=== PATIENT | male | born 1965 | race Caucasian/White ===

== ENCOUNTER 2017-11-03 19:18 | Inpatient (IN) | payer SELFPAY ==
[~2017-11-03 19:18] MED LIST: ISOVUE-370 76%-LOCM 1 ML ONE
[2017-11-03 20:17] LABS: Mean Corpuscular HGB CONC 34.2 g/dL (32.0-36.0); Mean Corpuscular Hemoglobin 32.1 pg (27.0-31.0); Mean Corpuscular Volume 93.9 fl (80.0-94.0); Mean Platelet Volume 7.3 fL (7.4-10.4); Platelet Count 97 thou/uL (130-400); RBC Distribution Width 11.6 % (11.5-14.5); Red Blood Cell (RBC) Count 4.36 mill/uL (4.70-6.10); White Blood Cell (WBC) Count 9.9 thou/uL (4.8-10.8)
[2017-11-03 20:37] LABS: Band 24 % (5-11); Lymphocytes 1 % (21-51); MDiff Complete? YES; Metamyelocyte 3 % (0-0); Monocytes 2 % (0-10); Neutrophil 70 % (42-75); PLT Morphology Comment Appears Decreased
[2017-11-03 20:38] LABS: ALT (SGPT) 32 U/L (8-55); AST (SGOT) 43 U/L (5-34); Albumin 2.9 g/dL (3.5-5.0); Alkaline Phosphatase 38 U/L (40-150); Anion Gap 13 mmol/L (10-20); BUN (Urea Nitrogen) 15 mg/dL (8.4-25.7); Bilirubin, Total 1.7 mg/dL (0.2-1.2); Calc. Creatinine Clearance 0 mL/min (70-130); Calcium 7.1 mg/dL (7.8-10.44); Carbon Dioxide 17 mmol/L (22-29); Chloride 101 mmol/L (98-107); Estimated GFR-MDRD 55; Globulin 2.8 g/dL (2.4-3.5); Glucose 156 mg/dL (70-105); Lipase 8 U/L (8-78); Potassium 3.3 mmol/L (3.5-5.1); Protein, Total 5.7 g/dL (6.0-8.3); Sodium 128 mmol/L (136-145)
[2017-11-03 20:43] LABS: CKMB 4.1 ng/mL (0-6.6); Troponin I 0.026 ng/mL (< 0.028)
[2017-11-03] MEDS ORDERED: Ondansetron HCl/PF 4 MG/2 ML Vial ONE (21:12)
[2017-11-03 21:43] LABS: Bilirubin Small (Negative); Clarity CLOUDY (Clear); Glucose, Urine (Dipstick) 250 mg/dL (Negative); Leukocyte Trace (Negative); Nitrite Negative (Negative); Protein, Urine (Dipstick) 100 mg/dL (Neg-Trace); Urobilinogen 0.2 mg/dL (0.2-1.0); pH, Urine 5.5 (5.0-9.0)
[2017-11-03 21:45] LABS: Bacteria/HPF Rare-Few HPF (None Seen); Pathc Cast-AUWi Flag 2.16 (0-2.49); RBC/HPF 0-3 HPF (0-3); Squamous Epithelial 0-3 HPF (0-3); WBC/HPF 21-50 HPF (0-3)
[2017-11-03 21:47] LABS: Yeast-AUWi Flag 105.6 (0-25.0)
--- NOTE | 2017-11-03 21:53 | RAD ---
PORTABLE CHEST ONE VIEW 11/03/17 at 7:24 p.m. HISTORY: Fever, sepsis. FINDINGS: Comparison is made with earlier exam of 4:28 p.m. The heart size is borderline. Lungs are well expanded without focal areas of consolidation, pneumotho rax, geovanna pulmonary edema, or pleural effusions. IMPRESSION: No radiographic evidence of acute cardiopulmonary process. POS: [facility]
[2017-11-03 21:58] LABS: Blood, Urine Trace (Negative); Crystals/HPF None Seen HPF (Negative); Hyaline Casts/LPF 4-6 HYALINE CAST LPF (0-3 Hyaline); Transitional Epithelial 0-3 HPF (0-3); Yeast-All Forms None Seen HPF (None Seen)
[2017-11-03] MEDS ORDERED: Magnesium Sulfate 2 GM/100 ML BAG ONE (22:22)
[2017-11-03] MEDS ORDERED: Magnesium Sulfate 2 GM/NS 0.9% 50 ML BAG ONE (22:23)
--- NOTE | 2017-11-03 22:38 | CT ---
CT ABDOMEN AND PELVIS WITH IV CONTRAST: 11/03/17 HISTORY: Sepsis. FINDINGS: There is a tiny right pleural effusion. There is small amount of fluid surrounding the distal esophag us. No free air or free fluid is otherwise seen in the abdomen or pelvis. No calcified gallstones are seen. The liver, spleen, pancreas, adrenal glands and kidneys appear normal. No abnormally loculated fluid collection is noted to suggest abscess formation. The prostate is mildly enlarged. There are degenera tive changes in the spine. There is no evidence of aneurysmal dilatation of the abdominal aorta. Ther e is no evidence of high grade small bowel obstruction. A small fat containing right inguinal hernia is present. IMPRESSION: Tiny right pleural effusion and small amount of periesophageal fluid surrounding the distal esophagus . Etiology of this is uncertain. Possibility of esophageal perforation cannot be excluded. Discussed over the telephone with ER physician, Dr. Jorge Rosenbaum at 9:52 p.m. POS: [facility]
[2017-11-03] MEDS ORDERED: Acetaminophen 500 MG TAB ONE (23:11)
[2017-11-03] MEDS ORDERED: metroNIDAZOLE 500 MG/100 ML BAG ONE (23:47)
[2017-11-04 00:05] LABS: Lactic Acid 3.7 mmol/L (0.5-2.2)
[2017-11-04 00:15] LABS: Troponin I 0.045 ng/mL (< 0.028)
[2017-11-04] MEDS ORDERED: Ibuprofen 200 MG TAB ONE (01:12)
[2017-11-04 02:54] LABS: Troponin I 0.054 ng/mL (< 0.028)
[2017-11-04] MEDS ORDERED: Ondansetron ODT 4 MG TAB PO PRN (03:39)
[2017-11-04] MEDS ORDERED: Acetaminophen 325 MG TAB PO PRN (03:39)
[2017-11-04] MEDS ORDERED: HYDROcodone/Acetaminophen 5/325 mg Tablet PO PRN (03:39)
[2017-11-04] MEDS ORDERED: metroNIDAZOLE 500 MG/100 ML BAG ONE ×2 (06:05→14:01)
--- NOTE | 2017-11-04 07:10 | HP ---
CHIEF COMPLAINT: Transferred from [facility] because of sepsis. HISTORY OF PRESENT ILLNESS: He is a 52-year-old man with no medical history. He came in because he has been feeling sick for a few days, with bodyaches had fever and nausea, vomiting, and sick contact with his girlfriend. When he came to the ER, he was tachycardic, pulse 120, blood pressure 100/60. Lactic acid high, so he was treated with sepsis protocol. He was given 3 liter boluses and a blood culture was done and he was admitted to the hospital with sepsis with no source. PAST SURGICAL HISTORY: No significant past medical history noted. SOCIAL HISTORY: Does not smoke, does not drink. Denies drug use. FAMILY HISTORY: Noncontributory. MEDICATIONS: None. REVIEW OF SYSTEMS: GENERAL: Does have fever and bodyaches. EYES: No blurry vision. ENT: Ears; no rhinorrhea, no discharge. CARDIOVASCULAR: Tachycardia. No chest pain, no orthopnea. RESPIRATORY: He has a mild cough, no congestion, no wheezing. ABDOMEN: Nausea, belly pain, no diarrhea, no vomiting. GENITOURINARY: No urinary symptoms, dysuria, urgency. SKIN: No rash. PHYSICAL EXAMINATION. GENERAL: A middle-aged man lying in the bed. VITAL SIGNS: Tachycardic, pulse 121, 26, blood pressure 104/60, h HEENT: Head is atraumatic, normocephalic. Pupils round, reactive. Extraocular movements intact. Throat normal. Tongue is moist. NECK: Supple, no JVD, no thyromegaly. Trachea midline. CHEST: Has diminished breath sounds, a few rhonchi audible. No crackles, no wheezing. CARDIOVASCULAR: S1 audible. No S4. ABDOMEN: Soft. Bowel sounds audible. Mild tenderness. No organomegaly, no guarding. EXTREMITIES: No pedal edema. No cyanosis or clubbing. PROFESSOR OF MEDICINE: Alert and oriented x3. No focal deficit. LABORATORY DATA: Shows sodium 128, potassium 3.9, chloride 101, carbon dioxide 17, BUN 15, creatinine 1.35, glucose 136, lactate 2.7, mag is 1.0, total bilirubin 1.7, AST 43, ALT 32. Troponin 0.050. Albumin 2.9, globulin 2.8, lipase 8. Urine shows a negative nitrite. Chest x-ray negative. CAT scan shows esophageal dilatation. ASSESSMENT AND PLAN: 1. Sepsis, etiology unclear. Continue sepsis protocol, IV fluid, follow lactic acid. IV Zosyn, Levaquin for broad spectrum coverage. Blood culture x2 and IV Flagyl. 2. Hyponatremia, mild hypovolemic to second hypovolemia. IV fluid and monitor sodium. 3. Hypokalemia and hypomagnesemia, metabolic, recurrent. Continue to replace electrolytes per protocol. 4. Slight positive troponin, possible demand ischemia. Get echocardiogram. 5. Deep venous thrombosis prophylaxis with Lovenox. MTDD
[2017-11-04] MEDS ORDERED: Enoxaparin Sodium 40 MG/0.4 ML SYRINGE SC SCH (09:00)
[2017-11-04] MEDS ORDERED: Vancomycin HCl 1 GM in Sodium Chloride 0.9% 250 ML 250 ML IVPB SCH (09:00)
[2017-11-04] MEDS ORDERED: MD-Gastroview 120 ML BOT ONE (10:05)
[2017-11-04] MEDS ORDERED: Famotidine/PF 20 mg/2ml Vial ONE (11:29)
--- NOTE | 2017-11-04 13:42 | PDOC.EVN ---
Event Note - Event Note Event Note: S: pt is seen today, he is tired and lethargic, but alert and oriented. He is admitted with Diarrhea and vomting, with fever and body pains, Pt was not checked for FLu. He had chest pain yesterday. O: Vitals are stbale, reviwed, and labs are abnormal reviwed, elevated Troponins and Abnormal electrolytes. A: NSTEM/ Sepsis/ Hypokalemia/ Hyponatremia/ GERONIMO/ flu like syndrome. P: Cardiology consulted, Echo is pending. Folow recomemdations Continue with IV fluids. Will check for Influenza A and treat with Tamiflu Continue emperic antibitoics.
[2017-11-04 16:20] VITALS: BMI 37.3
[2017-11-04] MEDS: Sodium Chloride 0.9% 1,000 ML IV SCH ×2 (16:36→16:37)
[2017-11-04] MEDS: Vancomycin HCl 1 GM in Premix Bag 1 BAG IVPB SCH ×2 (16:37→17:18)
[2017-11-04] MEDS: Piperacillin-Tazo-Dextrose,Iso 3.375 GM in Premix Bag 1 BAG IVPB SCH ×2 (16:37→17:18)
[2017-11-04] MEDS: metroNIDAZOLE 500 MG in Premix Bag 1 BAG IVPB SCH (16:37)
[2017-11-04] MEDS: Famotidine/PF 20 mg/2ml Vial SLOW IVP SCH (16:38)
[2017-11-04] MEDS: methylPREDNISolone Sod Succ/PF 125 MG/2 ML VIAL IVP SCH (17:23)
--- NOTE | 2017-11-04 21:31 | PRG ---
DATE OF SERVICE: 11/03/2017 SUBJECTIVE: Mr. Tucker is a very pleasant 52-year-old male who "never goes to the doctor." He says e very fall, he gets respiratory illness consisting of a cough that keeps him sick for about 10 days. He says the longest it has ever lasted is 2 weeks. He subsequently presented with a normal blood pressure, but an elevated pulse. It is unclear to me w hether or not he is febrile with his elevated pulse. Subsequently he was given IV fluids and started on 4 different antibiotics. He has turned bright red since antibiotics were started. I suspect thi s is a red man syndrome associated with vancomycin. PAST MEDICAL HISTORY: Otherwise unremarkable. He does not smoke, nondrinker, does not use drugs. ALLERGIES: He has no drug allergies. FAMILY HISTORY: Negative for lung disease at an early age. MEDICATIONS: He is on no medications prior to admission. REVIEW OF SYSTEMS: Ten points is otherwise negative. His only complaint is myalgias and low grade f ever, but he just could not shake as usual, fall, cough. PHYSICAL EXAMINATION: VITAL SIGNS: Blood pressure 132/90, heart rate is 134, respiratory rate 24. This is a triage in the IMU, oximetry is 96 on 3 liters. He is afebrile. HEENT: His pupils are equal, sclerae is anicteric. NECK: Supple. LUNGS: Clear. CARDIOVASCULAR: Heart regular rhythm. S1 and S2 are normal, rapid rate. ABDOMEN: Soft and nontender. EXTREMITIES: Without clubbing, cyanosis, or edema. LABORATORY DATA: White count 9.9, hemoglobin 14, platelets 97,000. Sodium 128, potassium 3.3, chlor alonzo 101, bicarb 17, BUN 15, creatinine 1.35, glucose 156. Lactate was elevated. Calcium was 7.1, bi lirubin was 1.7, AST 43, ALT 32, alkaline phosphatase 38, albumin is 2.9. Urinalysis showed only 100 mg per deciliter of protein, he had 21-50 white cells. He had an abdomen and pelvis CT done which showed a tiny right effusion, some inflammatory changes ar ound his distal esophagus. IMPRESSION: Bronchitis. There is nothing to suggest that he has mediastinitis associated with esophageal perforation. I suspect all of this is viral mediated. He does have multiple lab abnormalities, but these just needed to be followed with , and he need s to continue IV hydration. Other problems include mild hyponatremia, mild elevation of liver enzyme s with an elevated bilirubin, mild hypokalemia, mild elevation of creatinine, which I suspect is volu me related, mild elevation of glucose and multiple electrolyte abnormalities that he should be easily manageable. I do not feel any need for antibiotics or simplifies antimicrobial regimen simply to qu inolone at this time. His flu screen was negative. His urine culture is negative at 12 hours.
--- NOTE | 2017-11-04 22:57 | CON ---
DATE OF CONSULTATION: 11/04/2017. REQUESTING PHYSICIAN: Nicolas Williamson MD REASON FOR CONSULTATION: Abnormal CT of the esophagus. HISTORY OF PRESENT ILLNESS: Eliseo Tucker is a 52-year-old man with no significant past medical histo ry. He does not take any medications on an outpatient basis. He was admitted to the hospital yester day with progressive symptoms over the past week. He says symptoms started out with a nagging cough and nausea. The cough became increasingly more productive and then he became febrile then over the p ast couple of days, he became increasingly short of breath. The nausea has persisted. He has not jo d any significant vomiting, but he does say he had been retching and dry heaving quite forcefully a f ew times over the past few days, his appetite has gone down. Upon presentation, he was found to have lab and vital abnormalities consistent with sepsis. He has been tachycardic and slightly hypotensiv e. He is being treated with sepsis protocol. He is getting four antibiotics. Despite this over the course of the day, he has not really clinically improved. He has remained tachycardic. He continue s to cough and his lactic acid actually climbed from 2.7-3.7. He had a CT of the abdomen and pelvis last night on admission and this demonstrated a right pleural effusion, but also a small amount of fl uid around the distal esophagus of uncertain etiology, and the radiologist said the possibility of es ophageal perforation could not be excluded. The patient really is not having significant pain in the chest or in the abdomen. It is primarily the cough and the tachycardia that are bothering him from a symptom perspective. REVIEW OF SYSTEMS: Full review of systems including constitutional, head, eyes, ears, nose, throat, GI, , cardiovascular, respiratory, musculoskeletal, and neurologic systems is negative except as no [place] in the HPI. PAST MEDICAL HISTORY: None. PAST SURGICAL HISTORY: None. ALLERGIES: No known drug allergies. OUTPATIENT MEDICATIONS: None. INPATIENT MEDICATIONS: IV Zosyn, IV Levaquin, IV Flagyl, IV vancomycin. SOCIAL HISTORY: No smoking, alcohol, or drug use. FAMILY HISTORY: Noncontributory. PHYSICAL EXAMINATION: VITAL SIGNS: Temperature 99.4, pulse 134, blood pressure 132/90, 96% oxygen saturation on 3 liters b y nasal cannula. GENERAL: A 52-year-old obese gentleman lying in bed on his right side having a productive cough. MENTAL STATUS: He is alert and oriented, pleasant and conversational. He can give details about his presenting history and his current symptoms. SKIN: No jaundice, no rash visible or palpable. EYES: No scleral icterus. Extraocular movements intact. ENT: Mucous membranes moist, no oral lesions. LYMPH: No submandibular, supraclavicular lymphadenopathy. THYROID: Nontender to palpation. HEART: Regular tachycardia. LUNGS: Bibasilar crackles. No wheezing appreciated. He is coughing quite frequently. This is of c ough productive of greenish phlegm. ABDOMEN: Obese, bowel sounds present, soft and nontender to deep palpation throughout. No masses or organomegaly appreciated. EXTREMITIES: No peripheral edema. VESSELS: Radial pulses 2+ bilaterally. NEUROLOGICAL: Cranial nerves II-XII intact bilaterally. No focal deficits. LABORATORY STUDIES: WBC 9.9, hemoglobin 14, platelets 97. Sodium 128, potassium 3.3, BUN 15, creati nine 1.35, glucose 156. Magnesium 1.0. Lactic acid initially 2.7, now 3.7, and lipase only 8, total bilirubin 1.7, alkaline phosphatase 38, AST 43, ALT 32. Albumin 2.9. Influenza swab negative. Uri ne culture shows no growth at 12 hours. Troponin 0.02 climbing up to 0.04, then 0.054. IMAGING STUDIES: Initial chest x-ray showed no acute processes. CT of the abdomen and pelvis shows a small right pleural effusion and a small amount of fluid around the distal esophagus of uncertain e tiology. There is no free air, unopacified noncontrast liver, spleen, pancreas and bowel appeared no rmal. There is a small right inguinal hernia. ASSESSMENT AND PLAN: 1. Sepsis syndrome, unclear etiology. 2. Abnormal CT scan of the esophagus, demonstrating periesophageal fluid. I reviewed the patient's presentation as well as CT findings with the patient as well as Dr. Bills. Overall, the patient's presentation seems most consistent with some kind of viral pneumonitis. Howev er, I am concerned about his lack of clinical improvement today, increasing lactate levels and contin ued tachycardia. The patient does not have other clinical features of mediastinitis such as chest pa in, but given the CT findings of fluid around the distal esophagus, need to keep spontaneous esophage al perforation and development of mediastinitis in mind. He did have some forceful retching over the past few days. I do not think anything would be gained by performing upper endoscopy. Rather, I wo uld cut the patient's diabetic to clear liquid diet, and I recommend obtaining surgical consultation for their opinion on CT findings and his overall presentation. I spoke with Dr. Bills who agrees wit h the plan. Thank you for the consultation. Please call any time with questions or concerns.
[2017-11-05] MEDS: Sodium Chloride 0.9% 1,000 ML IV SCH ×2 (00:20→08:41)
[2017-11-05] MEDS: Benzonatate 100 MG CAP PO SCH ×4 (00:22→20:51)
[2017-11-05] MEDS: guaiFENesin ER 600 MG TAB PO SCH ×3 (00:22→20:51)
[2017-11-05] MEDS: Famotidine/PF 20 mg/2ml Vial SLOW IVP SCH ×3 (00:22→20:52)
[2017-11-05 05:21] LABS: Band 56 % (5-11); Dohle Bodies SLIGHT; Lymphocytes 3 % (21-51); MDiff Complete? YES; Mean Corpuscular HGB CONC 34.1 g/dL (32.0-36.0); Mean Corpuscular Hemoglobin 31.8 pg (27.0-31.0); Mean Corpuscular Volume 93.4 fl (80.0-94.0); Mean Platelet Volume 7.9 fL (7.4-10.4); Monocytes 4 % (0-10); Neutrophil 37 % (42-75); PLT Morphology Comment Appears Decreased; Platelet Count 95 thou/uL (130-400); Red Blood Cell (RBC) Count 4.39 mill/uL (4.70-6.10); White Blood Cell (WBC) Count 10.8 thou/uL (4.8-10.8)
[2017-11-05 05:33] LABS: Anion Gap 14 mmol/L (10-20); BUN (Urea Nitrogen) 12 mg/dL (8.4-25.7); Calc. Creatinine Clearance 170 mL/min (70-130); Calcium 7.9 mg/dL (7.8-10.44); Carbon Dioxide 19 mmol/L (22-29); Chloride 104 mmol/L (98-107); Estimated GFR-MDRD Greater than 90; Glucose 153 mg/dL (70-105); Potassium 3.8 mmol/L (3.5-5.1); Sodium 133 mmol/L (136-145)
--- NOTE | 2017-11-05 06:04 | CON ---
DATE OF CONSULTATION: 11/04/2017 HISTORY OF PRESENT ILLNESS: This is a 52-year-old gentleman admitted about 24 hours ago after being seen with sore throat, aches, chills with no documented fever, chest and abdominal pain for the prior 48 hours. He may have had some nausea and vomiting as well, although he cannot remember, and alexey alvarado is a rather poor historian. He smoked about a half a pack of cigarettes a day until about 2 week s ago. He drank heavily in the past, but none in 14 years. He is a outside machinist helper, living near [place], but when asked specifically where he lives, he cannot remember his address. PAST SURGICAL HISTORY: Includes multiple hernia repairs as well as a prior appendectomy. LABORATORY VALUES: His admitting white count was normal, although he did have 24 bands. His lactic acid was elevated. His chest x-ray was unremarkable and his CT scan was primarily of his abdomen, bu t did include his distal chest, was suspicious for some fluid around his distal esophagus, but no daniella ar air. He did not have any significant bilateral effusions. He has not had any repeat studies toda y. PHYSICAL EXAMINATION: GENERAL: He is alert and cooperative, in no acute distress. He states he feels congested and is tir ed of breathing hard. VITAL SIGNS: Heart rate is 125-130 and his blood pressure most recently 130/90. NECK: I did not feel any crepitance and he has no tenderness, although he thinks his neck is swollen . LUNGS: Reveal bilateral expiratory wheezes. CARDIOVASCULAR: Tachycardia with no murmurs. He has no chest wall tenderness. Abdomen: Obese, and nontender. EXTREMITIES: Without edema. At this time, Gastrografin swallow is pending to rule out a possible esophageal perforation. If this is the case, then it is probably at least 24 hours perhaps longer consideration [facility] will be given. If his influenza studies are negative, then he may just need to be treated for possible pneumonia. We will need to repeat his CBC as well.
--- NOTE | 2017-11-05 07:50 | RAD ---
GASTROGRAFIN ESOPHAGRAM: HISTORY: Esophagitis. RADIATION DOSIMETRY: 1.4 minutes of fluoroscopy and DAP of 8.57 mGy*^m2. Gastrografin was given orally. Spot images obtained. The esophagus is unremarkable. No evidence of esophageal web spans or strictures seen. The Gastrogr afin passes the distal esophagus without difficulty into the stomach. No evidence of a hiatal hernia is seen. No significant residual contrast is seen in the distal esophagus. No significant evidence of difficulty in passage of the contrast is seen in the distal esophagus. IMPRESSION: Normal esophagram. Findings discussed with Dr. Loo at 7:16 p.m. on 11/04/17. CODE CR POS: [facility]
[2017-11-05] MEDS: Sodium Chloride 0.45% 1,000 ML IV SCH ×2 (12:38→18:21)
[2017-11-05] MEDS ORDERED: cefTRIAXone\\ROCEPHIN 2 GM in Sodium Chloride 0.9% 100 ML IVPB SCH (13:00)
--- NOTE | 2017-11-05 13:59 | RAD ---
CHEST 1 VIEW: HISTORY: Dyspnea. Followup. COMPARISON: 11/03/16. FINDINGS: Cardiac silhouette is magnified and upper limits of normal in size. Pulmonary vasculature is also up per limits of normal. Infiltrate has developed at the right base with blunting of the right lateral costophrenic angle. Left lung is clear. IMPRESSION: Developing right basilar infiltrate with right pleural fluid. Clinical correlation regarding other s igns and symptoms of right basilar pneumonitis versus other cause of right lower lobe abnormality is required. POS: [facility]
[2017-11-05] MEDS ORDERED: Sodium Chloride 0.9% 1,000 ML IV SCH (14:45)
--- NOTE | 2017-11-05 14:53 | PRG ---
DATE OF SERVICE: 11/05/2017 GI INPATIENT DAILY PROGRESS NOTE SUBJECTIVE: Mr. Tucker is feeling a bit better today. His cough does persist. He has remained tachy cardic, but otherwise hemodynamically stable. No significant shortness of breath. No chest pain or abdominal pain. New chest x-ray today demonstrates right pleural effusion and right-sided lung infil trate. His Gastrografin esophagram yesterday was normal. There was no evidence of difficulty in pas july of the contrast from normal esophagus into the stomach. OBJECTIVE: VITAL SIGNS: Pulse 116, blood pressure 129/80, 95% oxygen saturation on 2 liters by nasal cannula, t emperature spiked to 101.7 this morning, currently 98.7. LABORATORY DATA: WBC 10.8, hemoglobin 14, and platelets 95. Sodium 133, potassium 3.8, BUN 12, crea tinine down to 0.84. ASSESSMENT AND PLAN: 1. Sepsis syndrome. 2. Right-sided pneumonia. 3. Abnormal CT scan of the esophagus, with subsequent Gastrografin esophagram normal. I reviewed th e normal esophagram. No evidence of mediastinitis. It does appear that the patient has a right-side d lung infiltrate. Workup for this is ongoing. He continues on antibiotics. I do not think there w ould be anything to be gained by upper endoscopy. He really has no primary gastrointestinal symptoms which are significant at this time. GI will sign off, but please call back at any time with questions or concerns. His diet can be advan cresencio.
[2017-11-05] MEDS ORDERED: Metoprolol Tartrate 5 MG/5 ML VIAL ONE (14:59)
[2017-11-05] MEDS ORDERED: Metoprolol Tartrate 5 MG/5 ML VIAL IVP SCH (15:15)
[2017-11-05 16:31] LABS: ALV-art Gradient 101.285 (0-20); Actual Bicarbonate (HCO3a) 18.2 mEq/L (22-26); Base Excess (BEa) -5.1 mEq/L (0 (+/-) 2.5); CO2 Tension 29.1 mmHg (35.0-45.0); Calcium, Ionized 1.1 mmol/L (1.12-1.30); Hematocrit-ABG 40.5 % (42.0-52.0); Hemoglobin (Hb) 13.1 g/dL (14.0-18.0); O2 Tension (PaO2) 60.3 mmHg (80.0-100.0); Puncture Site RRA; pH, Arterial 7.41 (7.35-7.45)
--- NOTE | 2017-11-05 16:37 | PDOC.PN ---
- Subjective Encounter Start Date: 11/05/17 Encounter Start Time: 10:20 Patient is seen today, alert and oriented. No other Concern snoted. No chest pain. - Objective Resuscitation Status: Resuscitation Status FULL:Full Resuscitation MAR Reviewed: Yes Vital Signs & Weight: Vital Signs (12 hours) Temp Pulse Resp BP Pulse Ox 11/05/17 16:00 99.0 F 11/05/17 15:36 121 H 35 H 96 11/05/17 13:05 98.7 F 132 H 32 H 94 L 11/05/17 11:17 132 H 32 H 94 L 11/05/17 11:00 101.7 F H 131 H 20 144/67 H 91 L 11/05/17 08:00 99.6 F 129 H 25 H 97 11/05/17 07:55 129 H 25 H 11/05/17 07:51 99.6 F 131 H 18 123/74 95 Weight Weight 260 lb Most Recent Monitor Data Heart Rate from ECG 129 NIBP 108/58 NIBP BP-Mean 71 Respiration from ECG 20 SpO2 93 I&O: 11/04/17 11/05/17 11/06/17 06:59 06:59 06:59 Intake Total 1900 1000 Output Total 200 950 Balance 1700 50 Result Diagrams: 11/05/17 04:12 11/05/17 04:12 Radiology Reviewed by me: Yes Phys Exam - Physical Examination HEENT: PERRLA, moist MMs Neck: no nodes, no JVD Respiratory: no wheezing, no rales, clear to auscultation bilateral Cardiovascular: RRR, no significant murmur Musculoskeletal: no edema, pulses present Dx/Plan (1) Sepsis Code(s): A41.9 - SEPSIS, UNSPECIFIED ORGANISM Status: Acute (2) Right lower lobe pneumonia Code(s): J18.1 - LOBAR PNEUMONIA, UNSPECIFIED ORGANISM Status: Acute (3) Mediastinitis Code(s): J98.51 - MEDIASTINITIS Status: Acute (4) Hypotension Status: Acute (5) Hyponatremia Code(s): E87.1 - HYPO-OSMOLALITY AND HYPONATREMIA Status: Acute - Plan cont current plan of care, continue antibiotics, PT/OT, respiratory therapy, DVT proph w/lovenox Plan: Pt is on IV Abx for Pneumonia right Lung, Pulmonary Folowing, Duo nebs and Ab meds, Will continue Pt has mediastinities this has been ruled for esophageal perforation by GI, discussed with Dr. Archer Pt had intial Tropini elevation, pt is on BB, Aspirin, cardiology diod Echo, is pending. Pt has low Blood pressures on pressors now. Will continue to Monitor in ICU. Dvt Prophylaxis: Lovenox 40mg sc daily. - Discharge Day Encounter end time: 10:50 Review of Systems - Review of Systems Constitutional: negative: fever, chills, sweats, weakness, malaise, other Eyes: negative: Pain, Vision Change, Conjunctivae Inflammation, Eyelid Inflammation, Redness, Other ENT: negative: Ear Pain, Ear Discharge, Nose Pain, Nose Discharge, Nose Congestion, Mouth Pain, Mouth Swelling, Throat Pain, Throat Swelling, Other Respiratory: negative: Cough, Dry, Shortness of Breath, Hemoptysis, SOB with Excertion, Pleuritic Pain, Sputum, Wheezing Cardiovascular: negative: chest pain, palpitations, orthopnea, paroxysmal nocturnal dyspnea, edema, light headedness, other Gastrointestinal: negative: Nausea, Vomiting, Abdominal Pain, Diarrhea, Constipation, Melena, Hematochezia, Other Genitourinary: negative: Dysuria, Frequency, Incontinence, Hematuria, Retention , Other Musculoskeletal: negative: Neck Pain, Shoulder Pain, Arm Pain, Back Pain, Hand Pain, Leg Pain, Foot Pain, Other Skin: negative: Rash, Lesions, Darci, Bruising, Other Neurological: negative: Weakness, Numbness, Incoordination, Change in Speech, Confusion, Seizures, Other - Medications/Allergies Allergies/Adverse Reactions: Allergies Allergy/AdvReac Type Severity Reaction Status Date / Time No Known Drug Allergies Allergy Verified 11/04/17 16:51 Medications: Current Medications Acetaminophen (Tylenol) 650 mg PO Q4H PRN PRN Reason: Headache/Fever or Pain Last Admin: 11/05/17 11:48 Dose: 650 mg Hydrocodone Bitart/Acetaminophen (Frederic 5/325) 1 tab PO Q4H PRN PRN Reason: Moderate Pain (4-6) Albuterol/Ipratropium (Duoneb) 3 ml NEB [id number] [facility] Last Admin: 11/05/17 15:36 Dose: 3 ml Benzonatate (Tessalon) 200 mg PO TID [facility] Last Admin: 11/05/17 15:28 Dose: 200 mg Famotidine (Pepcid) 20 mg SLOW IVP Q12HR [facility] Last Admin: 11/05/17 08:40 Dose: 20 mg Guaifenesin (Mucinex) 600 mg PO Q12HR [facility] Last Admin: 11/05/17 08:40 Dose: 600 mg Levofloxacin 750 mg/ Device 150 mls @ 100 mls/hr IVPB 1600 [facility] Last Admin: 11/04/17 17:23 Dose: 150 mls Sodium Chloride (1/2 Normal Saline) 1,000 mls @ 175 mls/hr IV .[id number] [facility] Last Admin: 11/05/17 12:38 Dose: 1,000 mls Methylprednisolone Sodium Succinate (Solu-Medrol) 80 mg IVP 1700 [facility] Last Admin: 11/04/17 17:23 Dose: 80 mg Ondansetron HCl (Zofran Odt) 4 mg PO Q6H PRN PRN Reason: Nausea/Vomiting
[2017-11-05] MEDS ORDERED: OCTAGAM IVPB SCH (16:45)
[2017-11-05] MEDS ORDERED: Penicillin G Potassium 4 MILL.UNITS in Sodium Chloride 0.9% 50 ML IVPB SCH (17:00)
[2017-11-05] MEDS: methylPREDNISolone Sod Succ/PF 125 MG/2 ML VIAL IVP SCH (18:07)
[2017-11-05] MEDS: Clindamycin/D5W 900 MG in Premix Bag 1 BAG IVPB SCH (20:52)
[2017-11-05] MEDS: Penicillin G Potassium 4 MILL.UNITS in Sodium Chloride 0.9% 100 ML IVPB SCH (20:52)
--- NOTE | 2017-11-05 22:14 | CON ---
DATE OF CONSULTATION: 11/05/2017 REASON FOR CONSULTATION: Sepsis. HISTORY OF PRESENT ILLNESS: A 52-year-old patient who has no significant past medical history, was i n usual state of health until about 2 weeks prior to that admission when he developed what he describ es upper respiratory symptoms, some fever which improved and then he had recrudescence this time with sore throat, worsening fever and what he describes as a pain in the anterior chest area and lateral chest. On arrival, his temperature is 103, was tachycardic with an elevated CPK. The physical exami nation showed clear lung sounds, nontender abdomen. Chest x-ray was normal. On arrival, abdomen CT with possible periesophageal fluid surrounding distal esophagus, esophageal swallow study did not cara w any evidence of barium penetration. Initial impression was sepsis, hyponatremia. The patient was given Zosyn, Levaquin, and Flagyl. Two out of two sets of blood cultures have returned positive for Streptococcus pyogenes. Dr. Bills has been consulted and he admitted the patient in the CCU in view of worsening tachycardia and developing a diffuse rash. Currently, Mr. Tucker is awake, he is tachypn eic and is feeling the pain in the anterior chest, which he relates more to the skin layer and then t he deeper structures. He also has tenderness in the right chest wall still present for the right cos tochondral area, lateral chest wall on palpation. No headaches, visual symptoms. Moderate sore thro at particularly in the hypopharyngeal area. No toothache, no back pain, no abdominal pain, no diarrh ea, no genitourinary symptoms, voiding spontaneously without difficulty. No joint symptoms. No neur ological symptoms. PAST MEDICAL HISTORY: Otherwise, negative. PAST SURGICAL HISTORY: He has no surgical history except for hernia repair. SOCIAL HISTORY: Never a smoker. Lives in [place]. FAMILY HISTORY: Noncontributory. CURRENT MEDICATIONS: Include [place], DuoNeb, Tessalon, ceftriaxone, Mucinex, levofloxacin, methylpred nisolone. PHYSICAL EXAMINATION: VITAL SIGNS: T-max 101.7, blood pressure 108/58, pulse 121, O2 sat 93% to 94%. SKIN: Showed diffuse erythematous macular rash with confluents in the anterior chest area, but prett y much involving the entire skin surface. No blistering noted. Alopecia, male pattern. HEENT: Sclerae are white, conjunctivae normal. Oral cavity normal, no erythema, no tooth abnormalit ies. NECK: Supple. No lymphadenopathy. LUNGS: With symmetric breath sounds with bibasilar inspiratory crackles up to 1/3 of the right and l eft hemithorax. HEART: S1, S2, regular rate without murmurs. ABDOMEN: Not distended, nontender. No ascites. No bladder distention. GENITOURINARY: Genital exam normal. He has one small area of ulceration in left anterior thigh with a small scab. EXTREMITIES: Pulses are 2+ in dorsalis pedis. Moves all extremities equally. NEUROLOGIC: Cognitive function appears to be intact. LABORATORY DATA: White cell count 10.8, hemoglobin 14, platelets 95,000, 56% bands. Sodium 133, cre atinine 0.84, which is improved from admission, bilirubin 1.7, AST 43. Urine with protein 100, 21-50 wbc's and chest bibasilar infiltrates, pleural fluid. ASSESSMENT: Otherwise healthy middle aged man with Streptococcal bacteremia with toxic like syndrome , probably from production of pyogenic toxin with multiorgan dysfunction. We will switch him to peni cillin, Cleocin and IVIG. Monitor for further complications. No evidence of focal areas of myositis . He does have a little bit of pain in the hypopharyngeal area, sometimes those cases can develop in to focal areas of myositis with necrotizing features, but did not apparent at this point in time.
--- NOTE | 2017-11-05 22:15 | PRG ---
DATE OF SERVICE: 11/05/2017 SUBJECTIVE: Mr. Tucker is transferred to this morning on my request after I evaluated him. He has become more tachycardic. He is not much more tachypneic, but he still looks uncomfortable. He is b right red all over. His hemodynamics had been stable. His blood pressure has been in the 130s-140s, this evening he is 1 31/79, heart rate is 119. Earlier today, he got up to a 150. He was given 2.5 mg of Lopressor, slowed down to the 120s. This was a sinus rhythm and not atrial flutter or SVT. His lungs are still remarkable for clear lung luu. HEART: Regular rhythm. Abdomen is nontender. He does have a couple of excoriated lesions on his lower extremities. Blood cultures have to be re viewed by clicking on all visits since he was in an outlying ER. He is growing Strep pyogenes from o ne of his blood cultures. IMPRESSION: Streptococcus pyogenes sepsis. I suspect one of the cutaneous lesions is the source of his diffuse erythema. Cutaneous erythema is related to his sepsis. Asked Dr. Lu to look at him f or input on antimicrobial therapy. He was on Levaquin this morning and he was on 4 antibiotics yeste rday. I have added Rocephin. His esophageal abnormalities are likely to be an incidental finding. He did not have extravasation o n a Gastrografin swallow. We will do better being observed in the critical care unit in my opinion. Critical care time 40 minutes today.
[2017-11-06] MEDS: Penicillin G Potassium 4 MILL.UNITS in Sodium Chloride 0.9% 100 ML IVPB SCH ×6 (00:03→21:45)
[2017-11-06] MEDS: Sodium Chloride 0.45% 1,000 ML IV SCH ×4 (00:03→12:45)
[2017-11-06] MEDS: Clindamycin/D5W 900 MG in Premix Bag 1 BAG IVPB SCH ×3 (06:09→22:15)
[2017-11-06 08:48] LABS: Hemoglobin 13.4 g/dL (14.0-18.0); Mean Corpuscular HGB CONC 34.1 g/dL (32.0-36.0); Mean Corpuscular Hemoglobin 31.7 pg (27.0-31.0); Mean Platelet Volume 8.6 fL (7.4-10.4); Platelet Count 91 thou/uL (130-400); RBC Distribution Width 12.2 % (11.5-14.5); Red Blood Cell (RBC) Count 4.22 mill/uL (4.70-6.10); White Blood Cell (WBC) Count 11.2 thou/uL (4.8-10.8)
[2017-11-06 08:49] LABS: Anion Gap 12 mmol/L (10-20); BUN (Urea Nitrogen) 10 mg/dL (8.4-25.7); Calc. Creatinine Clearance 204 mL/min (70-130); Calcium 8.2 mg/dL (7.8-10.44); Carbon Dioxide 21 mmol/L (22-29); Chloride 103 mmol/L (98-107); Estimated GFR-MDRD Greater than 90; Glucose 160 mg/dL (70-105); Potassium 3.9 mmol/L (3.5-5.1); Sodium 132 mmol/L (136-145)
[2017-11-06 09:02] LABS: Band 34 % (5-11); Lymphocytes 6 % (21-51); MDiff Complete? YES; Monocytes 5 % (0-10); Neutrophil 54 % (42-75); PLT Morphology Comment Appears Decreased; Polychromasia SLIGHT = 2-3 cells (100X) (0-2/hpf); Reactive Lymphocytes 1 % (0-10)
[2017-11-06] MEDS: Benzonatate 100 MG CAP PO SCH ×3 (10:18→21:01)
[2017-11-06] MEDS: guaiFENesin ER 600 MG TAB PO SCH (10:18)
[2017-11-06] MEDS: Famotidine/PF 20 mg/2ml Vial SLOW IVP SCH (12:45)
--- NOTE | 2017-11-06 15:04 | PDOC.PN ---
- Subjective Encounter Start Date: 11/06/17 Encounter Start Time: 12:00 Patient is seen today, he remains SOB, no chest pain, No nausea , feeling better. No other concern snoted. - Objective Resuscitation Status: Resuscitation Status FULL:Full Resuscitation MAR Reviewed: Yes Vital Signs & Weight: Vital Signs (12 hours) Temp Pulse Resp BP Pulse Ox 11/06/17 14:32 106 H 20 98 11/06/17 12:23 98.0 F 98 16 94 L 11/06/17 11:39 98.0 F 98 16 115/78 94 L 11/06/17 08:00 98.3 F 96 18 93 L 11/06/17 04:00 98.5 F Weight Weight 260 lb Most Recent Monitor Data Heart Rate from ECG 101 NIBP 124/86 NIBP BP-Mean 102 Respiration from ECG 21 SpO2 95 I&O: 11/05/17 11/06/17 11/07/17 06:59 06:59 06:59 Intake Total 1900 5870 600 Output Total 200 4500 500 Balance 1700 1370 100 Result Diagrams: 11/06/17 08:22 11/06/17 08:22 Radiology Reviewed by me: Yes Phys Exam - Physical Examination HEENT: PERRLA, moist MMs Neck: no nodes, no JVD Respiratory: wheezing present Cardiovascular: RRR, no significant murmur, no rub Gastrointestinal: soft, non-tender, no distention, positive bowel sounds Dx/Plan (1) Sepsis Code(s): A41.9 - SEPSIS, UNSPECIFIED ORGANISM Status: Acute (2) Right lower lobe pneumonia Code(s): J18.1 - LOBAR PNEUMONIA, UNSPECIFIED ORGANISM Status: Acute (3) Mediastinitis Code(s): J98.51 - MEDIASTINITIS Status: Acute (4) Hypotension Status: Acute (5) Hyponatremia Code(s): E87.1 - HYPO-OSMOLALITY AND HYPONATREMIA Status: Acute (6) NSTEMI (non-ST elevated myocardial infarction) Code(s): I21.4 - NON-ST ELEVATION (NSTEMI) MYOCARDIAL INFARCTION Status: Acute - Plan cont current plan of care, continue antibiotics, PT/OT, respiratory therapy, incentive spirometry, DVT proph w/lovenox Plan: Pt is on IV Abx for Pneumonia right Lung, Pulmonary Folowing, Duo nebs and Ab meds, Will continue Pt has mediastinities this has been ruled for esophageal perforation by GI, discussed with Dr. Archer Pt had intial Tropini elevation, will strt pt on Coreg 3.125mg BID, Aspirin, cardiology consult, Echo, is pending. Pt has low Blood pressures on pressors now. Will continue to Monitor in ICU. Dvt Prophylaxis: Lovenox 40mg sc daily. - Discharge Day Encounter end time: 12:30 Review of Systems - Review of Systems Constitutional: weakness, malaise Eyes: negative: Pain, Vision Change, Conjunctivae Inflammation, Eyelid Inflammation, Redness, Other ENT: negative: Ear Pain, Ear Discharge, Nose Pain, Nose Discharge, Nose Congestion, Mouth Pain, Mouth Swelling, Throat Pain, Throat Swelling, Other Respiratory: Cough, Shortness of Breath, SOB with Excertion, Pleuritic Pain, Wheezing Cardiovascular: negative: chest pain, palpitations, orthopnea, paroxysmal nocturnal dyspnea, edema, light headedness, other Gastrointestinal: negative: Nausea, Vomiting, Abdominal Pain, Diarrhea, Constipation, Melena, Hematochezia, Other Genitourinary: negative: Dysuria, Frequency, Incontinence, Hematuria, Retention , Other Musculoskeletal: negative: Neck Pain, Shoulder Pain, Arm Pain, Back Pain, Hand Pain, Leg Pain, Foot Pain, Other Skin: negative: Rash, Lesions, Darci, Bruising, Other Neurological: negative: Weakness, Numbness, Incoordination, Change in Speech, Confusion, Seizures, Other - Medications/Allergies Allergies/Adverse Reactions: Allergies Allergy/AdvReac Type Severity Reaction Status Date / Time No Known Drug Allergies Allergy Verified 11/04/17 16:51 Medications: Current Medications Acetaminophen (Tylenol) 650 mg PO Q4H PRN PRN Reason: Headache/Fever or Pain Last Admin: 11/05/17 11:48 Dose: 650 mg Hydrocodone Bitart/Acetaminophen ([place] 5/325) 1 tab PO Q4H PRN PRN Reason: Moderate Pain (4-6) Albuterol/Ipratropium (Duoneb) 3 ml NEB [id number] [facility] Last Admin: 11/06/17 14:32 Dose: 3 ml Aspirin (Ecotrin) 81 mg PO DAILY [facility] Atorvastatin Calcium (Lipitor) 40 mg PO HS [facility] Benzonatate (Tessalon) 200 mg PO TID [facility] Last Admin: 11/06/17 10:18 Dose: 200 mg Famotidine (Pepcid) 20 mg PO BID [facility] Clindamycin Phosphate/Dextrose (900 mg/ Device) 50 mls @ 100 mls/hr IVPB Q8HR [facility] Last Admin: 11/06/17 06:09 Dose: 50 mls Immune Globulin 40 gm/ Immune (Globulin 5 gm/ Device) 450 mls @ 60 mls/hr IVPB 1700 [facility] PRN Reason: As Directed Stop: 11/08/17 00:29 Penicillin G Potassium 4 mill. (units/ Sodium Chloride) 100 mls @ 200 mls/hr IVPB Q4HR [facility] Last Admin: 11/06/17 10:18 Dose: 100 mls Sodium Chloride (1/2 Normal Saline) 1,000 mls @ 50 mls/hr IV .Q20H [facility] Last Admin: 11/06/17 12:44 Dose: Not Given Methylprednisolone Sodium Succinate (Solu-Medrol) 40 mg IVP 1700 [facility] Ondansetron HCl (Zofran Odt) 4 mg PO Q6H PRN PRN Reason: Nausea/Vomiting
[2017-11-06] MEDS ORDERED: Carvedilol 3.125 MG TAB PO SCH (17:00)
--- NOTE | 2017-11-06 17:33 | CON ---
DATE OF CONSULTATION: 11/06/2017 REASON FOR CONSULTATION: Elevated troponins. HISTORY OF PRESENT ILLNESS: Mr. Tucker is a very pleasant 52-year-old white gentleman, who comes to [facility] for cough and not feeling well. He had subjective fevers as well. He was diagnosed with septic shock and was in the ICU briefly and later on transferred over to the floor as he had signifi cant clinical improvement. Lactic acid was high as well. He had troponins drawn during his admissio n there were positive, so Cardiology has been consulted for this. PAST MEDICAL HISTORY: None. SOCIAL HISTORY: Former smoker and former heavy alcohol user. He quit smoking 2 weeks ago. He quit drinking several years ago. No drug use. FAMILY HISTORY: Noncontributory. OUTPATIENT MEDICATIONS: None. ALLERGIES: No known drug allergies. REVIEW OF SYSTEMS: A 12-point review of systems was done and is all negative unless stated in the hi story of present illness. His only symptom currently has chest pain on the right side of the chest w hen he coughs. PHYSICAL EXAMINATION: VITAL SIGNS: Temperature 98.0, pulse 98, respiratory 16, satting 94% on 2 liters, and blood pressure 115/78. GENERAL: Awake, alert, oriented x3, in no distress. HEENT: Normocephalic, atraumatic. NECK: Supple. LUNGS: Clear. CARDIOVASCULAR: S1 and S2. No S3 or S4. No murmurs or rubs. ABDOMEN: Soft, positive bowel sounds. EXTREMITIES: No edema. SKIN: Very dry with no significant skin lesions. LABORATORY WORK: Reviewed. Blood cultures were positive for Strep myelogenous. Sodium was 128, better now at 133, potassium is 3.8. Troponin was drawn three times was 0.02 and the n 0.04, and then 0.05. Lactic acid was up to 3.7 and has not rechecked since. UA showed 100 protei n, 150 glucose, trace ketones, trace blood, small amount of bilirubin, 2150 white cells, 4-6 hyaline casts. Echocardiogram is pending. CT of abdomen and pelvis was reviewed. ASSESSMENT: 1. Elevated troponins: Most likely from demand ischemia. We will do an echocardiogram to assess LV function and valvular structures. 2. Septic shock. 3. Streptococcus pyogenes bacteremia. PLAN: 1. Echocardiogram to assess LV function. 2. Most likely his mild troponin elevation is related to demand ischemia. This is not an indication for any of the ACS medications in the protocol. We would continue to treat septic shock per primary team. 3. Further recommendations results of echocardiogram.
[2017-11-06] MEDS: OCTAGAM IVPB SCH (18:01)
--- NOTE | 2017-11-06 19:45 | PRG ---
DATE OF SERVICE: 11/06/2017 Eliseo Tucker actually looks almost normal today. He actually said 2 days ago he had a premonition that he was dying. OBJECTIVE: VITAL SIGNS: He is afebrile, heart rate is 98, respiratory rate 16, oximetry is 94, blood pressure 115/78. LUNGS: Clear. HEART: Regular rhythm. ABDOMEN: Soft. LABORATORY DATA: White count 11.2, hemoglobin 13.4, platelets 91. Sodium 132, potassium 3.9, chloride 103, bicarb 21, BUN 10, creatinine 0.7. IMPRESSION: Streptococcus pyogenes bacteremia with cutaneous erythema and most likely associated with Streptococcus pyogenes. He has not developed necrotizing fasciitis that we can identify. He clinically is 100% better than he was 2 days ago and yesterday morning. Dr. Lu' input is appreciated. Hopefully, he is turning the corner. We will continue with antibiotics and steroids and IVIG as Dr. Lu feels it is necessary. We will transfer out of the Critical Care Unit today. Critical Care time 30 min. [place]
[2017-11-06] MEDS: Atorvastatin Calcium 40 MG TAB PO SCH (21:01)
[2017-11-06] MEDS: Famotidine 20 MG TAB PO SCH (21:01)
[2017-11-07] MEDS: Penicillin G Potassium 4 MILL.UNITS in Sodium Chloride 0.9% 100 ML IVPB SCH ×6 (01:57→20:35)
[2017-11-07 05:45] LABS: Anion Gap 9 mmol/L (10-20); BUN (Urea Nitrogen) 17 mg/dL (8.4-25.7); Calc. Creatinine Clearance 188 mL/min (70-130); Calcium 8.1 mg/dL (7.8-10.44); Carbon Dioxide 26 mmol/L (22-29); Chloride 104 mmol/L (98-107); Estimated GFR-MDRD Greater than 90; Glucose 194 mg/dL (70-105); Potassium 3.8 mmol/L (3.5-5.1); Sodium 135 mmol/L (136-145)
[2017-11-07 06:05] LABS: Band 5 % (5-11); Hemoglobin 12.2 g/dL (14.0-18.0); Lymphocytes 17 % (21-51); MDiff Complete? YES; Mean Corpuscular HGB CONC 34.3 g/dL (32.0-36.0); Mean Corpuscular Hemoglobin 31.8 pg (27.0-31.0); Mean Corpuscular Volume 92.7 fl (80.0-94.0); Mean Platelet Volume 8.6 fL (7.4-10.4); Monocytes 8 % (0-10); Myelocyte 5 % (0-0); Neutrophil 55 % (42-75); Nucleated RBC 1 % (0); PLT Morphology Comment Appears Decreased; Platelet Count 98 thou/uL (130-400); RBC Distribution Width 12.1 % (11.5-14.5); Reactive Lymphocytes 10 % (0-10); Red Blood Cell (RBC) Count 3.82 mill/uL (4.70-6.10); White Blood Cell (WBC) Count 10.3 thou/uL (4.8-10.8)
[2017-11-07] MEDS: Clindamycin/D5W 900 MG in Premix Bag 1 BAG IVPB SCH ×3 (06:05→21:32)
[2017-11-07] MEDS: Famotidine 20 MG TAB PO SCH ×2 (07:53→20:26)
[2017-11-07] MEDS: Benzonatate 100 MG CAP PO SCH ×3 (07:53→20:26)
[2017-11-07] MEDS: Aspirin 81 mg Enteric Coated Tablet PO SCH (07:53)
[2017-11-07] MEDS: Sodium Chloride 0.45% 1,000 ML IV SCH ×2 (07:54→14:36)
--- NOTE | 2017-11-07 09:34 | PRG ---
DATE OF SERVICE: 11/07/2017 Mr. Tucker is feeling well. He said he had a good night sleep. PHYSICAL EXAMINATION: VITAL SIGNS: His heart rate is 105. He is afebrile, respiratory rate is 18, oximetry 94, blood pres sure 146/94. LUNGS: Clear. HEART: Regular rhythm. ABDOMEN: Soft. IMPRESSION: 1. Strep pyogenes sepsis, clinically improved. 2. Probable demand ischemia. His beta olivia has been discontinued. Unless there is clearcut evidence of coronary disease there is no indication for just empiric beta olivia or TAWNYA inhibitor therapy. His echocardiogram has been ordered. We will continue to follow. Antibiotics will be decided on by Infectious Disease.
--- NOTE | 2017-11-07 11:14 | PRG ---
DATE OF SERVICE: 11/06/2017 HISTORY: Mr. Tucker had been transferred to the floor. He is much more comfortable, lying in bed, aw doris, alert, oriented. He does not appear in any distress, no pain, no chest pain, no diarrhea, no ge nitourinary symptoms. PHYSICAL EXAMINATION: VITAL SIGNS: He has defervesced, slight elevation in systolic blood pressure and slight tachycardia. O2 saturations 94%. SKIN: The exam shows improvement in the skin eruption with less erythema. GENERAL: He is awake, alert, oriented. HEENT: Ocular movements are conjugate. No conjunctival hyperemia. Oral cavity is normal. LUNGS: With symmetric breath sounds with clear breath sounds, no crackles heard at this time. HEART: S1, S2, regular rate. ABDOMEN: Soft. Not distended or tender. EXTREMITIES: He moves extremities equally. LABORATORY: White cell count was 11.2, hemoglobin 13.4, platelets 91,000, creatinine 0.76. Microbio logy showed Streptococcus pyogenes, the usual susceptibility profile. ASSESSMENT AND DISCUSSION : Streptococcus pyogenes bacteremia with toxic like syndrome with marked i mprovement. Very soon should be transitioned to oral medication for discharge planning. I do not se e any evidence of progression of organ dysfunction at this point in time. Eventually, we may start e xfoliating his skin.
--- NOTE | 2017-11-07 12:09 | PDOC.CTH ---
Cardiology Progress Note - Subjective Continues to have right sided chest pain when coughing. - Objective Vital Signs Temp Pulse Resp BP Pulse Ox 11/07/17 11:08 106 H 16 97 11/07/17 08:00 98.1 F 105 H 18 94 L 11/07/17 07:26 98.1 F 105 H 18 146/94 H 94 L 11/07/17 06:37 94 L 11/07/17 06:36 86 16 94 L 11/07/17 04:00 97.7 F 104 H 20 134/91 H 94 L 11/07/17 02:00 95 Weight 260 lb 11/06/17 11/07/17 11/08/17 06:59 06:59 06:59 Intake Total 5870 2100 Output Total 4500 1000 Balance 1370 1100 - Physical Examination General/Neuro: alert & oriented x3, NAD Neck: no JVD present Lungs: unlabored respirations Heart: RRR Abdomen: NT/ND Extremities: + edema B (1+) - Labs Result Diagrams: 11/07/17 04:47 11/07/17 04:47 Troponin/CKMB CK-MB (CK-2) 4.1 ng/mL (0-6.6) 11/03/17 20:06 Troponin I 0.054 ng/mL (< 0.028) H 11/04/17 02:21 - Assessment/Plan 1. NSTEMI, demand ischemia, not an actual ACS. 2. Septic shock 3. Bacteremia. PLAN: - Echocardiogram pending at this time. - Currently no indication for ACS medications as this is most likely demand ischemia. - Further recs depending on echo results.
--- NOTE | 2017-11-07 15:19 | PDOC.PN ---
- Subjective Encounter Start Date: 11/07/17 Encounter Start Time: 10:00 Patient is seen today, alert and oriented. No other Concern snoted. he seems to be much improved, likely plan discharge tomorrow. - Objective Resuscitation Status: Resuscitation Status FULL:Full Resuscitation MAR Reviewed: Yes Vital Signs & Weight: Vital Signs (12 hours) Temp Pulse Resp BP Pulse Ox 11/07/17 14:36 91 16 98 11/07/17 11:08 106 H 16 97 11/07/17 08:00 98.1 F 105 H 18 94 L 11/07/17 07:26 98.1 F 105 H 18 146/94 H 94 L 11/07/17 06:37 94 L 11/07/17 06:36 86 16 94 L 11/07/17 04:00 97.7 F 104 H 20 134/91 H 94 L Weight Weight 260 lb Most Recent Monitor Data Heart Rate from ECG 101 NIBP 124/86 NIBP BP-Mean 102 Respiration from ECG 21 SpO2 95 I&O: 11/06/17 11/07/17 11/08/17 06:59 06:59 06:59 Intake Total 5870 2100 Output Total 4500 1000 Balance 1370 1100 Result Diagrams: 11/07/17 04:47 11/07/17 04:47 Phys Exam - Physical Examination HEENT: PERRLA, moist MMs Neck: no nodes, no JVD Respiratory: no wheezing, no rales Cardiovascular: no significant murmur Gastrointestinal: soft, non-tender, no distention Musculoskeletal: no edema, pulses present Dx/Plan (1) Sepsis Code(s): A41.9 - SEPSIS, UNSPECIFIED ORGANISM Status: Acute (2) Right lower lobe pneumonia Code(s): J18.1 - LOBAR PNEUMONIA, UNSPECIFIED ORGANISM Status: Acute (3) Mediastinitis Code(s): J98.51 - MEDIASTINITIS Status: Acute (4) Hypotension Status: Acute (5) Hyponatremia Code(s): E87.1 - HYPO-OSMOLALITY AND HYPONATREMIA Status: Acute (6) NSTEMI (non-ST elevated myocardial infarction) Code(s): I21.4 - NON-ST ELEVATION (NSTEMI) MYOCARDIAL INFARCTION Status: Acute - Plan cont current plan of care, respiratory therapy, incentive spirometry, DVT proph w/SCDs * Plan: Pt is on IV Abx for Pneumonia right Lung, Pulmonary Folowing, Duo nebs and Ab meds, Will continue, likely discharge with PO Abx tomorrow. Pt has mediastinities this has been ruled for esophageal perforation by GI, discussed with Dr. Archer Pt had intial Tropini elevation, cardiology said Demand iscemia will d/ c BB, Echo, is normal good EF.. Dvt Prophylaxis: Lovenox 40mg sc daily.. - Discharge Day Encounter end time: 10:30 Review of Systems - Review of Systems Constitutional: negative: fever, chills, sweats, weakness, malaise, other Eyes: negative: Pain, Vision Change, Conjunctivae Inflammation, Eyelid Inflammation, Redness, Other ENT: negative: Ear Pain, Ear Discharge, Nose Pain, Nose Discharge, Nose Congestion, Mouth Pain, Mouth Swelling, Throat Pain, Throat Swelling, Other Respiratory: negative: Cough, Dry, Shortness of Breath, Hemoptysis, SOB with Excertion, Pleuritic Pain, Sputum, Wheezing Cardiovascular: negative: chest pain, palpitations, orthopnea, paroxysmal nocturnal dyspnea, edema, light headedness, other Gastrointestinal: negative: Nausea, Vomiting, Abdominal Pain, Diarrhea, Constipation, Melena, Hematochezia, Other Genitourinary: negative: Dysuria, Frequency, Incontinence, Hematuria, Retention , Other Musculoskeletal: negative: Neck Pain, Shoulder Pain, Arm Pain, Back Pain, Hand Pain, Leg Pain, Foot Pain, Other Skin: negative: Rash, Lesions, Darci, Bruising, Other Neurological: negative: Weakness, Numbness, Incoordination, Change in Speech, Confusion, Seizures, Other - Medications/Allergies Allergies/Adverse Reactions: Allergies Allergy/AdvReac Type Severity Reaction Status Date / Time No Known Drug Allergies Allergy Verified 11/04/17 16:51 Medications: Current Medications Acetaminophen (Tylenol) 650 mg PO Q4H PRN PRN Reason: Headache/Fever or Pain Last Admin: 11/05/17 11:48 Dose: 650 mg Hydrocodone Bitart/Acetaminophen ([place] 5/325) 1 tab PO Q4H PRN PRN Reason: Moderate Pain (4-6) Albuterol/Ipratropium (Duoneb) 3 ml NEB [id number] [facility] Last Admin: 11/07/17 14:36 Dose: 3 ml Aspirin (Ecotrin) 81 mg PO DAILY [facility] Last Admin: 11/07/17 07:53 Dose: 81 mg Atorvastatin Calcium (Lipitor) 40 mg PO HS [facility] Last Admin: 11/06/17 21:01 Dose: 40 mg Benzonatate (Tessalon) 200 mg PO TID [facility] Last Admin: 11/07/17 14:32 Dose: 200 mg Famotidine (Pepcid) 20 mg PO BID [facility] Last Admin: 11/07/17 07:53 Dose: 20 mg Clindamycin Phosphate/Dextrose (900 mg/ Device) 50 mls @ 100 mls/hr IVPB Q8HR [facility] Last Admin: 11/07/17 14:33 Dose: 50 mls Immune Globulin 40 gm/ Immune (Globulin 5 gm/ Device) 450 mls @ 60 mls/hr IVPB 1700 [facility] PRN Reason: As Directed Stop: 11/08/17 00:29 Last Admin: 11/06/17 18:01 Dose: 450 mls Penicillin G Potassium 4 mill. (units/ Sodium Chloride) 100 mls @ 200 mls/hr IVPB Q4HR [facility] Last Admin: 11/07/17 11:56 Dose: 100 mls Sodium Chloride (1/2 Normal Saline) 1,000 mls @ 50 mls/hr IV .Q20H [facility] Last Admin: 11/07/17 14:36 Dose: 1,000 mls Methylprednisolone Sodium Succinate (Solu-Medrol) 40 mg IVP 1700 [facility] Last Admin: 11/06/17 17:21 Dose: 40 mg Ondansetron HCl (Zofran Odt) 4 mg PO Q6H PRN PRN Reason: Nausea/Vomiting
[2017-11-07] MEDS: OCTAGAM IVPB SCH (18:00)
[2017-11-07] MEDS: Atorvastatin Calcium 40 MG TAB PO SCH (20:25)
[2017-11-08] MEDS: Penicillin G Potassium 4 MILL.UNITS in Sodium Chloride 0.9% 100 ML IVPB SCH ×4 (00:37→12:21)
[2017-11-08] MEDS: Sodium Chloride 0.45% 1,000 ML IV SCH (04:07)
[2017-11-08] MEDS: Clindamycin/D5W 900 MG in Premix Bag 1 BAG IVPB SCH ×2 (05:07→15:05)
[2017-11-08 05:14] LABS: Band 16 % (5-11); Hemoglobin 11.4 g/dL (14.0-18.0); Lymphocytes 19 % (21-51); MDiff Complete? YES; Mean Corpuscular Hemoglobin 31.8 pg (27.0-31.0); Mean Corpuscular Volume 93.4 fl (80.0-94.0); Mean Platelet Volume 9.5 fL (7.4-10.4); Metamyelocyte 2 % (0-0); Monocytes 14 % (0-10); Neutrophil 49 % (42-75); PLT Morphology Comment Appears Decreased; Platelet Count 122 thou/uL (130-400); RBC Distribution Width 12.5 % (11.5-14.5); RBC Morphology Normal; White Blood Cell (WBC) Count 9.8 thou/uL (4.8-10.8)
[2017-11-08 07:34] VITALS: BP 129/90; TEMP 97.3
[2017-11-08] MEDS: Famotidine 20 MG TAB PO SCH (08:05)
[2017-11-08] MEDS: Aspirin 81 mg Enteric Coated Tablet PO SCH (08:05)
[2017-11-08] MEDS: Benzonatate 100 MG CAP PO SCH (08:05)
[2017-11-08 10:57] LABS: Chloride 103 mmol/L (98-107); Potassium 3.8 mmol/L (3.5-5.1); Sodium 136 mmol/L (136-145)
[2017-11-08 10:58] LABS: Calcium 7.9 mg/dL (7.8-10.44); Glucose 131 mg/dL (70-105)
[2017-11-08 11:00] LABS: Anion Gap 11 mmol/L (10-20); Carbon Dioxide 26 mmol/L (22-29)
[2017-11-08 11:02] LABS: BUN (Urea Nitrogen) 16 mg/dL (8.4-25.7); Calc. Creatinine Clearance 183 mL/min (70-130); Estimated GFR-MDRD Greater than 90
--- NOTE | 2017-11-08 16:16 | DIS ---
DATE OF ADMISSION: 11/04/2017 DATE OF DISCHARGE: 11/08/2017 ADMITTING DIAGNOSIS: Severe sepsis. DISCHARGE DIAGNOSIS: Severe sepsis from streptococcal pyogenes. SECONDARY DIAGNOSES: 1. Acute mediastinitis. 2. Ztg-HM-efkvcufnu myocardial infarction. 3. Demand ischemia. 4. Hyponatremia. 5. Hypokalemia. 6. Acute hypoxic respiratory failure. HISTORY OF PRESENT ILLNESS AND HOSPITAL COURSE: In brief, this is a 52-year-old white male with no p ast medical history, looking very sick for the past few days with bodyaches and fever, nausea, and vo miting. He had a sick contact with his girlfriend who had similar symptoms and was admitted to the [facility] at the same time. Patient was very tachycardic with a pulse of 120 and blood pressures of 10 0/60 and elevated lactic acid. He was initially started on severe aggressive IV fluid hydration and blood cultures were done. One of the blood cultures was growing Streptococcus pyogenes, so Infectiou s Disease was consulted and the patient was started on benzathine, penicillin and clindamycin. Reece eid was noted to have CT evidence of paraesophageal fluid and there was a suspicion for esophageal per foration, so the patient had esophagogram done by GI, which did not show any evidence of esophageal p erforation and patient also had elevated troponins, which was more of a demand ischemia suggested by Cardiology. The patient was initially started on Coreg and was later discontinued and also started o n aspirin. The patient had an echo, which was unremarkable. The patient was admitted to the ICU and was closely monitored. His oxygen saturations improved slowly and his blood pressures also improved and the patient was transferred to the regular floor and was monitored for another 2 days. Patient did fine and he was also started on steroids for the low blood pressures, which was tapered off to co ntinue as oral steroids for 1 week taper. The patient was stable on the day of discharge and was discharged home in stable condition to [facility] the course of antibiotics. CONSULTANTS INVOLVED DURING THIS ADMISSION: 1. Dr. Juan Bills from Pulmonary. 2. Dr. Forest Pace from GI. 3. Dr. Dennis Loo from Cardiovascular. 4. Dr. Jose Lu from Infectious Disease. 5. Dr. Stacy from Cardiology. PHYSICAL EXAMINATION: On the day of discharge: VITAL SIGNS: Blood pressures are 129/90, heart rate is 94, respirations 16 and saturation 96%. GENERAL: The patient is moderately built and moderately nourished. Does not appear in acute distres s at this time. Alert and oriented x3. HEENT: Atraumatic and normocephalic. PERRLA. Extraocular movements are intact. Oral mucosa is pin k and moist. CARDIOVASCULAR: S1, S2 normal. No murmurs, rubs or gallops. LUNGS: Bilateral air entry was equal. No wheezing, no crackles. ABDOMEN: Soft and nontender. No guarding, no rebound tenderness. Bowel sounds are normal. DISCHARGE MEDICATIONS: 1. Amoxicillin 500/125 mg tablet 1 twice a day to complete for 4 more days. 2. Aspirin 81 mg p.o. daily. 3. Atorvastatin 40 mg p.o. daily. 4. Benzonatate 100 mg capsule 200 mg p.o. t.i.d. as needed for cough. 5. Prednisone 20 mg tablet. Continue for 3 days and reduce it to 10 mg daily for 3 days and then re duce it to 10 mg every other day for 3 days and then stop. DISCHARGE INSTRUCTIONS: 1. Continue with the antibiotics as suggested above along with the steroids. 2. Advised to follow up with Dr. Bills in 1 week. 3. Advised to follow up with primary care physician in 1 week. 4. Advised to return back to the ER if the patient has a worsening shortness of breath or chest pain . 5. Continue activity as tolerated. 6. Continue with a general diet. I spent 35 minutes with this patient.
--- NOTE | 2017-11-08 19:08 | PRG ---
DATE OF SERVICE: 11/08/2017 SUBJECTIVE: He is doing better. He says he has got a cough which is nonproductive. He is walking i n the [place] without any much distress. OBJECTIVE: VITAL SIGNS: Blood pressure is 129/90, sats are 98, temperature 97, respiration rate 16. CHEST: Chest reveals decreased breath sounds, no wheezing. CARDIAC: Normal S1, S2. No gallops. ABDOMEN: Soft, no masses. LABORATORY DATA: White count 9800, H&H 11 and 33, platelet count is normal. Electrolytes are normal . IMPRESSION: Sepsis, respiratory failure, deconditioning. Continue antibiotics as prescribed, steroi ds, and supportive care. We will follow.
--- NOTE | 2017-11-13 06:17 | HP ---
CHIEF COMPLAINT: Left-sided chest pain. HISTORY OF PRESENT ILLNESS: This is a 52-year-old pleasant gentleman who was apparently in his usual state of health, recently discharged on 11/08 after being treated for severe sepsis secondary to Str eptococcal pyogenes. He was sent on antibiotics, prednisone, and he was doing well, but yesterday ab out on the 17 morning, he woke up and he started having severe left-sided chest pain which worsened with cough and deep breaths. The patient did not know what was happening, hence he came into the [facility] for further evaluation and treatment. He had a CT scan with angiogram which was negative for acute pulmonary embolism, but showed bilateral pleural fluid and possible pulmonary edema. Also, a C T scan also showed scattered ground glass opacities, possible ground glass opacities. The patient jo d a white count of 26.8 , and hence he is going to be admitted for evaluation and treatment of t hat. Of note, during his discharge, he was treated for some demand ischemia and acute hypoxic respir atory failure as well. At that time during the last admission, he also had evidence of esophageal fl uid collection which was worked up and there was no evidence of esophageal perforation right now. He has no fever, complains of some cough with some whitish sputum production and severe left-sided ches t pain. PAST MEDICAL HISTORY: Significant for severe sepsis secondary to Strep pyogenes and some hypercholes terolemia. PAST SURGICAL HISTORY: Significant for hernia repair. FAMILY HISTORY: Negative for diabetes and hypertension. SOCIAL HISTORY: Used to smoke. Used to drink a lot, but does not drink for the last 14 years, used to dip tobacco but has quit for one month. Denies any recreational drug use. FAMILY HISTORY: Negative for diabetes and hypertension. MEDICATIONS: He was discharged on amoxicillin, Augmentin for 5 more days, aspirin 81 mg p.o. daily, atorvastatin 40 mg p.o. daily, Tessalon Perles 100 mg p.o. t.i.d., prednisone 20 mg for p.o. daily fo r 3 days and then taper. REVIEW OF SYSTEMS: Significant for severe chest pain, cough, otherwise no fever, no chills, no heada saravanan, no appetite, no hearing loss, no latencies. No diarrhea, dysuria or polyuria. No memory or moo d changes noted. PHYSICAL EXAMINATION: VITAL SIGNS: Blood pressure is 120/78, pulse was 129, respirations 22, temperature 99. GENERAL: Patient is lying in bed in mild distress because of pain. HEENT: Atraumatic, normocephalic. Pupils equally round, react to light. Extraocular movements inta ct. Mucous membranes are moist. NECK: Supple. No JVD. CHEST: Scattered coarse breath sounds heard. CARDIOVASCULAR: S1, S2 normal, tachycardic. Chest wall tenderness on deep inspiration on the left s alonzo. ABDOMEN: Soft, obese. EXTREMITIES: No cyanosis, clubbing, edema. Distal pulses present. NEUROLOGIC: Alert, awake, oriented. No cranial nerve deficits. No sensorimotor deficits. LABORATORY DATA: EKG shows sinus tachycardia. Chest x-ray shows possible pneumonia. CT angiogram s hows possible bilateral pleural effusions, possible obesity , possibly secondary to pulmonary ed ezequiel. LABORATORY DATA: WBC count is 26, hemoglobin is 15, potassium is 4.7, creatinine is 0.9. Lactic aci d is 1.8. ASSESSMENT AND PLAN: 1. Sepsis secondary to possible pneumonia. We will put the patient on Zosyn and Levaquin to cover f or any hospital acquired pathogens as the patient was recently discharged from the hospital. We will consult ID and Pulmonary for evaluation of that. The patient complains of severe peripheral pleurit is worsened with cough. We will give the patient anti-cough suppressants and pain medications to con trol the hyponatremia with a sodium of 128. We will gently hydrate the patient. We will do blood cu ltures. Urinalysis will be done and cultures if needed. The patient had a recent history of sepsis secondary to Strep pyogenes. Sequential compression devices for deep venous thrombosis prophylaxis. I will work with consultants and further caring for the patient. 2. Obesity. We will program counselor the patient about this. History of tobacco use in the past. Patient h as been counseled. Sequential compression devices for deep venous thrombosis prophylaxis. I will wo rk with the consultants and further caring for the patient.
== END 2017-11-08 16:38 | disposition home or self-care (01) | DRG 871 ==
LOC: ERS 19:18 → ERHOLD 23:45 → IMCU/EMU 11-04 16:16 → CCU 11-05 13:08 → T4-A 11-06 11:36
PROVIDERS: ADMIT Family Medicine; ATTEND Family Medicine
DX: A40.0 Sepsis due to streptococcus, group A (principal); J96.01 Acute respiratory failure with hypoxia; I21.A1 Myocardial infarction type 2; R65.21 Severe sepsis with septic shock; J98.51 Mediastinitis; I95.9 Hypotension, unspecified; J18.9 Pneumonia, unspecified organism; E83.42 Hypomagnesemia; E87.1 Hypo-osmolality and hyponatremia; N17.9 Acute kidney failure, unspecified; E86.1 Hypovolemia; E87.6 Hypokalemia; J40 Bronchitis, not specified as acute or chronic; Z87.891 Personal history of nicotine dependence
CPT/HCPCS: 36415; 36416; 71045; 74177; 74220; 80048; 82805; 83605; 83690; 83735; 84145; 84484; 85007; 85025; 85027; 87086; 93005; 93010; 93306; 94640; 96361; 96365; 96366; 96367; 96375; J0696; J1568; J2405; J2540; J2543; J2920; J2930; J3370; J3475; J3490; J7050; J7620; S0028

== ENCOUNTER 2017-11-12 21:38 | Inpatient (IN) | payer SELFPAY ==
[2017-11-12] MEDS ORDERED: Morphine 4 MG/ML Carpuject ONE (22:28)
[2017-11-12] MEDS ORDERED: Aspirin 325 MG TAB ONE (22:29)
[2017-11-12 22:30] LABS: Band 2 % (5-11); Hemoglobin 15.8 g/dL (14.0-18.0); Lymphocytes 12 % (21-51); MDiff Complete? YES; Mean Corpuscular HGB CONC 34.6 g/dL (32.0-36.0); Mean Corpuscular Hemoglobin 32.3 pg (27.0-31.0); Mean Corpuscular Volume 93.4 fl (80.0-94.0); Mean Platelet Volume 7.4 fL (7.4-10.4); Monocytes 3 % (0-10); Neutrophil 83 % (42-75); Platelet Count 470 thou/uL (130-400); RBC Distribution Width 12.9 % (11.5-14.5); White Blood Cell (WBC) Count 26.8 thou/uL (4.8-10.8)
--- NOTE | 2017-11-12 22:32 | RAD ---
PORTABLE AP CHEST X-RAY 11/12/17 HISTORY: Chest pain. COMPARISON: 11/05/17. FINDINGS: The cardiac silhouette is again magnified by projection but is at the upper limits of normal in size. Pulmonary vasculature is within normal limits. The parenchymal changes at the right lung base are ag ain seen, although the linear densities have mildly improved. The left lung remains clear. Blunting o f the right lateral costophrenic angle is also again seen. IMPRESSION: Persistent opacity at the right lung base which may be related to pneumonia and small right pleural e ffusion. Followup to resolution is recommended. POS: ZULEIMA
[2017-11-12 22:37] LABS: CKMB 1.9 ng/mL (0-6.6); Troponin I 0.025 ng/mL (< 0.028)
[2017-11-12 23:09] LABS: Albumin 3.2 g/dL (3.5-5.0)
[2017-11-12 23:10] LABS: Chloride 97 mmol/L (98-107); Potassium 5.7 mmol/L (3.5-5.1); Sodium 128 mmol/L (136-145)
[2017-11-12 23:11] LABS: Calcium 9.8 mg/dL (7.8-10.44)
[2017-11-12 23:12] LABS: Globulin 5.9 g/dL (2.4-3.5); Glucose 149 mg/dL (70-105); Protein, Total 9.1 g/dL (6.0-8.3)
[2017-11-12 23:13] LABS: Anion Gap 16 mmol/L (10-20); Carbon Dioxide 21 mmol/L (22-29)
[2017-11-12 23:14] LABS: Alkaline Phosphatase 59 U/L (40-150); Bilirubin, Total 1.3 mg/dL (0.2-1.2)
[2017-11-12 23:15] LABS: Calc. Creatinine Clearance 0 mL/min (70-130); Estimated GFR-MDRD 79
[2017-11-12 23:16] LABS: BUN (Urea Nitrogen) 26 mg/dL (8.4-25.7)
[2017-11-12 23:17] LABS: AST (SGOT) 55 U/L (5-34)
[2017-11-12 23:18] LABS: ALT (SGPT) 44 U/L (8-55); CK (CPK) 46 U/L (30-200)
--- NOTE | 2017-11-12 23:35 | CT ---
CT CHEST WITH 3D VOLUME RENDERING 11/12/17 INDICATION: Chest pain, tachycardia. FINDINGS: No evidence of significant filling defect of the pulmonary arterial system. There is bilateral pleura l fluid, mild in volume. Trace pericardial fluid versus thickening present. There is interstitial sep julio thickening of the lungs and scattered ground glass opacities which may be along the basis of rand a. Thoracic lymph nodes are not enlarged by size criteria. Skeletal structures reveal degenerative ch scott. Thoracic aorta is nonaneurysmal. There is minute vascular calcification. IMPRESSION: 1. No evidence of acute pulmonary embolus. 2. Bilateral pleural fluid and probable pulmonary edema. Correlate clinically. POS: C
[2017-11-12] MEDS ORDERED: Ketorolac Tromethamine 30 MG/ML VIAL ONE (23:51)
[2017-11-13] MEDS ORDERED: Piperacillin/Tazobactam 4.5 GM in Sodium Chloride 0.9% 100 ML IVPB SCH (00:15)
[2017-11-13 00:42] LABS: Bilirubin Negative (Negative); Blood, Urine Negative (Negative); Clarity CLEAR (Clear); Glucose, Urine (Dipstick) Negative (Negative); Leukocyte Negative (Negative); Nitrite Negative (Negative); Protein, Urine (Dipstick) Negative (Neg-Trace); Urobilinogen 0.2 mg/dL (0.2-1.0)
[2017-11-13 00:49] LABS: Specific Gravity, Urine Greater than 1.060 (1.002-1.036)
[2017-11-13] MEDS ORDERED: Sodium Chloride 0.9% 1,000 ML IV SCH ×2 (01:21→01:23)
[2017-11-13] MEDS ORDERED: Ondansetron HCl/PF 4 MG/2 ML Vial IVP PRN ×2 (01:21→01:23)
[2017-11-13] MEDS ORDERED: Bisacodyl 5 MG TAB PO PRN (01:21)
[2017-11-13] MEDS ORDERED: Acetaminophen 325 MG TAB PO PRN ×2 (01:21→01:23)
[2017-11-13] MEDS ORDERED: Lorazepam 1 MG TAB PO PRN (01:21)
[2017-11-13] MEDS ORDERED: Zolpidem Tartrate 5 MG TAB PO PRN (01:21)
[2017-11-13] MEDS ORDERED: Benzonatate 100 MG CAP PO PRN (01:21)
[2017-11-13] MEDS ORDERED: hydrALAZINE 20 MG/ML VIAL SLOW IVP PRN (01:21)
[2017-11-13] MEDS ORDERED: Ondansetron ODT 4 MG TAB SL PRN (01:23)
[2017-11-13 01:59] VITALS: BMI 35.4
[2017-11-13] MEDS ORDERED: Vancomycin HCl 1 GM in Premix Bag 1 BAG IVPB SCH (02:00)
[2017-11-13 05:09] LABS: #Eosinphils 0.1 thou/uL (0.0-0.7); #Lymphocytes 2.4 thou/uL (1.20-3.40); #Monocytes 1.3 thou/uL (0.11-0.59); #Neutrophils 18.7 thou/uL (1.40-6.50); %Basophils 0.1 % (0.0-1.0); %Eosinophils 0.6 % (0.0-10.0); %Lymphocytes 10.6 % (21.0-51.0); %Monocytes 5.6 % (0.0-10.0); %Neutrophils 83.1 % (42.0-75.0); Mean Corpuscular HGB CONC 32.2 g/dL (32.0-36.0); Mean Corpuscular Hemoglobin 30.3 pg (27.0-31.0); Mean Corpuscular Volume 93.9 fl (80.0-94.0); Mean Platelet Volume 7.4 fL (7.4-10.4); Platelet Count 296 thou/uL (130-400); RBC Distribution Width 12.7 % (11.5-14.5); White Blood Cell (WBC) Count 22.5 thou/uL (4.8-10.8)
[2017-11-13 05:31] LABS: Anion Gap 12 mmol/L (10-20); BUN (Urea Nitrogen) 24 mg/dL (8.4-25.7); Calc. Creatinine Clearance 186 mL/min (70-130); Calcium 7.9 mg/dL (7.8-10.44); Carbon Dioxide 20 mmol/L (22-29); Chloride 100 mmol/L (98-107); Estimated GFR-MDRD Greater than 90; Glucose 128 mg/dL (70-105); Potassium 5.2 mmol/L (3.5-5.1); Sodium 127 mmol/L (136-145)
[2017-11-13] MEDS: Piperacillin/Tazobactam 4.5 GM in Sodium Chloride 0.9% 100 ML IVPB SCH ×2 (05:33→11:04)
[2017-11-13] MEDS: HYDROcodone/Acetaminophen 5/325 mg Tablet PO PRN ×5 (05:38→23:17)
--- NOTE | 2017-11-13 06:17 | HP ---
CHIEF COMPLAINT: Left-sided chest pain. HISTORY OF PRESENT ILLNESS: This is a 52-year-old pleasant gentleman who was apparently in his usual state of health, recently discharged on 11/08 after being treated for severe sepsis secondary to Str eptococcal pyogenes. He was sent on antibiotics, prednisone, and he was doing well, but yesterday ab out on the 17 morning, he woke up and he started having severe left-sided chest pain which worsened with cough and deep breaths. The patient did not know what was happening, hence he [facility] for [facility] evaluation and treatment. He had a CT scan with angiogram which was negative for acute pulmonary embolism, but showed bilateral pleural fluid and possible pulmonary edema. Also, a C T scan also showed scattered ground glass opacities, possible ground glass opacities. The patient jo d a white count of 26.8 , and hence he is going to be admitted for evaluation and treatment of t hat. Of note, during his discharge, he was treated for some demand ischemia and acute hypoxic respir atory failure as well. At that time during the last admission, he also had evidence of esophageal fl uid collection which was worked up and there was no evidence of esophageal perforation right now. He has no fever, complains of some cough with some whitish sputum production and severe left-sided ches t pain. PAST MEDICAL HISTORY: Significant for severe sepsis secondary to Strep pyogenes and some hypercholes terolemia. PAST SURGICAL HISTORY: Significant for hernia repair. FAMILY HISTORY: Negative for diabetes and hypertension. SOCIAL HISTORY: Used to smoke. Used to drink a lot, but does not drink for the last 14 years, used to dip tobacco but has quit for one month. Denies any recreational drug use. FAMILY HISTORY: Negative for diabetes and hypertension. MEDICATIONS: He was discharged on amoxicillin, Augmentin for 5 more days, aspirin 81 mg p.o. daily, atorvastatin 40 mg p.o. daily, Tessalon Perles 100 mg p.o. t.i.d., prednisone 20 mg for p.o. daily fo r 3 days and then taper. REVIEW OF SYSTEMS: Significant for severe chest pain, cough, otherwise no fever, no chills, no heada saravanan, no appetite, no hearing loss, no latencies. No diarrhea, dysuria or polyuria. No memory or moo d changes noted. PHYSICAL EXAMINATION: VITAL SIGNS: Blood pressure is 120/78, pulse was 129, respirations 22, temperature 99. GENERAL: Patient is lying in bed in mild distress because of pain. HEENT: Atraumatic, normocephalic. Pupils equally round, react to light. Extraocular movements inta ct. Mucous membranes are moist. NECK: Supple. No JVD. CHEST: Scattered coarse breath sounds heard. CARDIOVASCULAR: S1, S2 normal, tachycardic. Chest wall tenderness on deep inspiration on the left s alonzo. ABDOMEN: Soft, obese. EXTREMITIES: No cyanosis, clubbing, edema. Distal pulses present. NEUROLOGIC: Alert, awake, oriented. No cranial nerve deficits. No sensorimotor deficits. LABORATORY DATA: EKG shows sinus tachycardia. Chest x-ray shows possible pneumonia. CT angiogram s hows possible bilateral pleural effusions, possible obesity , possibly secondary to pulmonary ed ezequiel. LABORATORY DATA: WBC count is 26, hemoglobin is 15, potassium is 4.7, creatinine is 0.9. Lactic aci d is 1.8. ASSESSMENT AND PLAN: 1. Sepsis secondary to possible pneumonia. We will put the patient on Zosyn and Levaquin to cover f or any hospital acquired pathogens as the patient was recently discharged from the hospital. We will consult ID and Pulmonary for evaluation of that. The patient complains of severe peripheral pleurit is worsened with cough. We will give the patient anti-cough suppressants and pain medications to con trol the hyponatremia with a sodium of 128. We will gently hydrate the patient. We will do blood cu ltures. Urinalysis will be done and cultures if needed. The patient had a recent history of sepsis secondary to Strep pyogenes. Sequential compression devices for deep venous thrombosis prophylaxis. I will work with consultants and further caring for the patient. 2. Obesity. We will on awake counselor the patient about this. History of tobacco use in the past. Patient h as been counseled. Sequential compression devices for deep venous thrombosis prophylaxis. I will wo rk with the consultants and further caring for the patient.
[2017-11-13 07:53] LABS: Magnesium 1.9 mg/dL (1.6-2.6); Phosphorus 3.5 mg/dL (2.3-4.7)
[2017-11-13] MEDS: Famotidine 20 MG TAB PO SCH ×2 (08:06→21:04)
[2017-11-13 08:42] LABS: Bacteria/HPF None Seen HPF (None Seen); Hyaline Casts/LPF 0-3 HYALINE CAST LPF (0-3 Hyaline); RBC/HPF 0-3 HPF (0-3); WBC/HPF 0-3 HPF (0-3)
[2017-11-13 10:21] LABS: Anion Gap 11 mmol/L (10-20); BUN (Urea Nitrogen) 22 mg/dL (8.4-25.7); Calc. Creatinine Clearance 183 mL/min (70-130); Carbon Dioxide 22 mmol/L (22-29); Chloride 99 mmol/L (98-107); Estimated GFR-MDRD Greater than 90; Glucose 188 mg/dL (70-105); Potassium 4.6 mmol/L (3.5-5.1); Sodium 127 mmol/L (136-145)
--- NOTE | 2017-11-13 13:36 | CON ---
DATE OF CONSULTATION: 11/13/2017 HISTORY: This is a 52-year-old gentleman who was just recently discharged from the hospital after a prolonged stay for Streptococcus sepsis. In fact, he tells me when he went home he was still having some vague left-sided chest pain, somewhat pleuritic in nature. He had demand ischemia, electrolyte imbalance, respiratory failure, apparently mediastinitis and sepsis. His discharge mediations included amoxicillin, cough syrup and prednisone. He now presents last night with worsening left-sided pleuritic chest pain. He denied any associated fever or chills, sweats, hemoptysis. He was started on [place] and Zosyn. This morning he said his pain is still somewhat pronounced. PAST MEDICAL HISTORY: His extensive past medical history is well outlined. Pertinent for obesity. He is from the [facility], just recently moved here. No history of diabetes, hypertension. PAST SURGICAL HISTORY: Hernia operation. SOCIAL HISTORY: No substance abuse. REVIEW OF SYSTEMS: Otherwise 10 point negative. PHYSICAL EXAMINATION: VITAL SIGNS: Blood pressure 160/84, pulse 84, sats 90%, temperature 98. CHEST: Chest reveals no wheezing or crackles. CARDIAC: Normal S1, S2. No gallop. ABDOMEN: Soft. NEURO: Neurologically he is awake. LABORATORY: White count 22,000, H&H 13 and 40, platelet count 296, sodium 127. His x-ray shows bibasilar infiltrate. CAT scan shows small pleural effusion. No evidence of pulmona ry emboli. IMPRESSION: 1. Left pleuritic chest pain. 2. Previous Streptococcal sepsis. 3. Obesity. 4. Hyponatremia. PLAN: I have restarted his home prednisone. Continue with Zosyn. Supportive care. Ambulation. I will reevaluate in the next 24 hours his lab, etc. I will follow.
--- NOTE | 2017-11-13 14:24 | CON ---
DATE OF CONSULTATION: 11/13/2017 REASON FOR CONSULTATION: Recrudescence of cough with chest pain, neutrophilia. HISTORY OF PRESENT ILLNESS: A 52-year-old recently seen in the hospital with Group A Streptococcus p yogenes bacteremia with toxic like syndrome which improved after Cleocin, penicillin, and intravenous gammaglobulin. The patient was discharged on amoxicillin, aspirin, atorvastatin, benzonatate, and p rednisone in a tapering dose. At home, he continues to have a lot of coughing spells, the day before admission he had vomiting, and then developed a very sharp pleuritic pain in the left anterior chest wall, was brought in today to the emergency room. CT angio did not show any pulmonary embolism. Th ere was evidence of congestion, maybe early interstitial pulmonary edema. Initial labs with white ce ll count 26,000, hemoglobin 15 with platelets 470, a predominance of mature neutrophils. Chemistry w ith sodium 127, potassium 5.2, creatinine 0.75, AST 55, ALT 44, alkaline phosphatase 59. Serum total protein was very high at 9.1. The patient currently is sitting in bed. He is awake, alert, oriented; still having moderate pleurit ic pain in the left anterior chest wall area. No headaches. Still a little bit of cough. No dyspne a. No abdominal pain or diarrhea. No genitourinary symptoms. No joint symptoms. His skin rash has resolved, just left is the flakiness of the skin. PAST MEDICAL HISTORY: Prior to this admission, he had this recent episode of Strep pyogenes bacterem ia with toxic like syndrome, other than that pretty negative except for hernia repair. SOCIAL HISTORY: Never a smoker. Lives in [place]. FAMILY HISTORY: Noncontributory. MEDICATIONS: Currently, he is receiving Tylenol, [place], Tessalon, Dulcolax, Pepcid, Apresoline, levo floxacin, lorazepam, ondansetron, Zosyn, prednisone, zolpidem. PHYSICAL EXAMINATION: GENERAL: He appears in no distress. He has been afebrile since admission. Blood pressure 100/63, p ulse 79, respirations 14, O2 sat 92-95%. SKIN: Little bit of exfoliation of the skin. The previously noted erythema has completely resolved. No lymphadenopathy. HEENT: Noncontributory. NECK: Supple. LUNGS: With symmetric air entry with faint basilar inspiratory crackles. HEART: S1 and S2, regular rate. No S3 or S4. ABDOMEN: Soft. Not distended. No tenderness. No ascites. No bladder distention. EXTREMITIES: No joint inflammatory activity. LABORATORY DATA: Urinalysis was normal. Followup white cell count 22,000, hemoglobin 13, platelets 296, sodium 127, creatinine 0.75. CRP 10.5. ASSESSMENT AND DISCUSSION: Recent episode of Streptococcus pyogenes bacteremia with toxic like syndr ome, now with evidence of persistent cough, some vomiting, and tenderness of left anterior rib cage r egion. There is a very sharp point like tenderness, most likely due to rib fracture fissure followin g the extensive episodes of coughing that the patient has had recently. The patient does not have ev idence of pneumonitis. He received a lot of IV fluids and other products which have led to some pulm onary interstitial edema. He had an echocardiogram a few days ago which was technically difficult, o verall EF was normal, mild mitral regurgitation. The troponin was normal. I think if the streptococ alma illness has been treated, we can probably discontinue antimicrobial therapy. I would discontinue other antimicrobials as well. We would consider discontinuing prednisone as well.
[2017-11-13 16:35] LABS: Anion Gap 9 mmol/L (10-20); BUN (Urea Nitrogen) 19 mg/dL (8.4-25.7); Calc. Creatinine Clearance 181 mL/min (70-130); Calcium 8.1 mg/dL (7.8-10.44); Carbon Dioxide 26 mmol/L (22-29); Chloride 99 mmol/L (98-107); Estimated GFR-MDRD Greater than 90; Glucose 120 mg/dL (70-105); Potassium 4.4 mmol/L (3.5-5.1); Sodium 130 mmol/L (136-145)
[2017-11-14] MEDS: HYDROcodone/Acetaminophen 5/325 mg Tablet PO PRN ×5 (04:00→22:46)
[2017-11-14 05:27] LABS: #Basophils 0.1 thou/uL (0.0-0.2); #Eosinphils 0.4 thou/uL (0.0-0.7); #Lymphocytes 2.3 thou/uL (1.20-3.40); #Monocytes 1.4 thou/uL (0.11-0.59); %Basophils 0.6 % (0.0-1.0); %Eosinophils 2.6 % (0.0-10.0); %Lymphocytes 15.1 % (21.0-51.0); %Monocytes 9.4 % (0.0-10.0); %Neutrophils 72.3 % (42.0-75.0); Hemoglobin 13.5 g/dL (14.0-18.0); Mean Corpuscular Hemoglobin 31.1 pg (27.0-31.0); Mean Corpuscular Volume 94.4 fl (80.0-94.0); Platelet Count 335 thou/uL (130-400); RBC Distribution Width 12.9 % (11.5-14.5); Red Blood Cell (RBC) Count 4.34 mill/uL (4.70-6.10); White Blood Cell (WBC) Count 15.3 thou/uL (4.8-10.8)
[2017-11-14 05:42] LABS: Anion Gap 14 mmol/L (10-20); BUN (Urea Nitrogen) 16 mg/dL (8.4-25.7); Calc. Creatinine Clearance 189 mL/min (70-130); Calcium 8.2 mg/dL (7.8-10.44); Carbon Dioxide 23 mmol/L (22-29); Chloride 96 mmol/L (98-107); Estimated GFR-MDRD Greater than 90; Glucose 111 mg/dL (70-105); Potassium 4.7 mmol/L (3.5-5.1); Sodium 128 mmol/L (136-145)
[2017-11-14] MEDS: predniSONE 20 MG TAB PO SCH (08:08)
[2017-11-14] MEDS: Famotidine 20 MG TAB PO SCH ×2 (08:08→21:23)
[2017-11-14] MEDS ORDERED: Magnesium 2 GM/NS 0.9% 100 ML 2 GM in Premix Bag 1 BAG IVPB SCH (11:30)
[2017-11-14] MEDS ORDERED: HYDROcodone/Acetaminophen 5/325 mg Tablet PO SCH (11:45)
[2017-11-14] MEDS ORDERED: Heparin 1,000 UNITS/ML VIAL ONE (15:31)
--- NOTE | 2017-11-14 16:06 | NM ---
NUCLEAR MEDICINE MUGA SCAN 11/14/17 HISTORY: 52-year-old male with chest pain. TECHNIQUE: A nuclear medicine MUGA scan was performed using 27 millicuries of Technetium 99m tagged red blood ce lls. FINDINGS: Phase and amplitude are normal. An ejection fraction was estimated at 58%. IMPRESSION: Normal ejection fraction. POS: DELORES
--- NOTE | 2017-11-14 19:06 | CON ---
DATE OF CONSULTATION: 11/14/2017 REASON FOR CONSULTATION: Nonsustained VT. HISTORY OF PRESENT ILLNESS: Mr. Tucker is a pleasant 52-year-old white gentleman who was in the [facility] just a week ago for fevers, was diagnosed with septic shock, was in the ICU and intubated briefly , did very well after antibiotics were started. Cardiology was consulted at that time for just indet erminate troponins which were thought to be demand ischemia, and he had an echocardiogram that showed LV function was difficult to assess given poor windows, but it seemed to be mostly normal. He was s cheduled to have a followup appointment and have other type of testing as an outpatient for his heart . He had Streptococcus pyogenes bacteremia at that time. He comes back today as he started to devel op recrudescence of cough with increased chest pain. He stated the chest pain is worse when he cough s and is on the left chest. In the ER, CT angio did not show any pulmonary embolism, but he had mild pulmonary edema and elevated white count. On my evaluation, he is not complaining of any chest pain . He says when he coughs it hurts in the mid sternal area. He has been on telemetry and was found t o have a small run of nonsustained VT heart rate about 200 beats a minute, so Cardiology has been con sulted for this. PAST MEDICAL HISTORY: Negative except for the recent episode of strep pyogenes bacteremia. PAST SURGICAL HISTORY: Hernia repair. SOCIAL HISTORY: No alcohol, tobacco or drugs. FAMILY HISTORY: Noncontributory. MEDICATIONS: Were reviewed from recent discharge and were unchanged. REVIEW OF SYSTEMS: A 12-point review of systems was done and is all negative unless stated in the h istory of present illness. PHYSICAL EXAMINATION: VITAL SIGNS: Temperature 99.2 is the highest, currently 97.9, pulse 87, respiratory rate 14, satting 93% on 2 liters, blood pressure 117/68. GENERAL: Awake, alert, oriented x3, in no distress. He is sitting up. HEENT: Normocephalic, atraumatic. NECK: Supple. LUNGS: Have clear on the left base, the right base has mild crackles. CARDIOVASCULAR: S1, S2, no S3, S4, no murmurs, rubs, or gallops. ABDOMEN: Soft, positive bowel sounds. EXTREMITIES: Trace edema. SKIN: Warm and dry. LABORATORY WORK: Reviewed. CBC, CMP and chemistries were all reviewed. BNP was 47. EKG was reviewed. Telemetry was reviewed and it showed a small episode of nonsustained VT for about 2-3 seconds' worth. Asymptomatic. ASSESSMENT AND PLAN: Nonsustained ventricular tachycardia: The most important thing is to make sure that his electrolytes are normal and that his left ventricular function is in fact normal. We will recommend doing MUGA scan at this time to have the goal standard as far as LV function is concern. I f this is normal, we will most likely just need a beta olivia once he is more stable and would recom mend a stress as an outpatient not in the setting of worsening of his infection. His troponin is und etectable x1. It is really similar to what it was on last admission. Thank you for letting us to participate in the care of your patient. We will follow.
--- NOTE | 2017-11-14 21:24 | PDOC.PN ---
- Subjective Encounter Start Date: 11/14/17 Encounter Start Time: 12:30 Patient seen and examined. Pleuritic CP +. No overnight events. No fever/chills. - Objective MAR Reviewed: Yes Vital Signs & Weight: Vital Signs (12 hours) Temp Pulse Resp BP Pulse Ox 11/14/17 19:00 98.2 F 86 18 136/70 93 L 11/14/17 16:00 97.9 F 106 H 12 124/62 92 L 11/14/17 11:21 97.9 F 94 16 124/60 95 Weight Weight 251 lb 6.4 oz I&O: 11/13/17 11/14/17 11/15/17 06:59 06:59 06:59 Intake Total 865 1100 1580 Output Total 400 1550 1250 Balance 465 -450 330 Result Diagrams: 11/14/17 04:14 11/14/17 04:14 EKG Reviewed by me: Yes (Tele SR, NSVT earlier) Phys Exam - Physical Examination Constitutional: NAD Respiratory: no wheezing, no rales, no rhonchi Symmetrical Cardiovascular: RRR, no rub no heaves/pulsations Gastrointestinal: soft, non-tender, no distention, positive bowel sounds Musculoskeletal: no edema Neurological: non-focal, normal sensation, moves all 4 limbs Psychiatric: normal affect, A&O x 3 Dx/Plan - Plan DVT proph w/SCDs IMPRESSION: 1. NSVT 2. Recent Strep bacteremia - No further Atbx needed per ID 3. Pleuritic CP - PE ruled out - probably pleurisy 4. Leucocytosis - probably steroid induced per ID - improving 5. Hyponatremia 6. Obesity BMI 35.1 PLAN: * consult Cardio * ID/Pulm following * Pain control * On Steroids * No Atbx needed per ID * Cont to monitor * Plan d/w Dr Stacy - will need MUGA scan - Had recent Echo - EF not clear * AM labs Review of Systems - Review of Systems Respiratory: Pleuritic Pain. negative: Cough, Dry, Shortness of Breath, Hemoptysis, SOB with Excertion, Sputum, Wheezing Cardiovascular: negative: chest pain, palpitations, orthopnea, paroxysmal nocturnal dyspnea, edema, light headedness - Medications/Allergies Allergies/Adverse Reactions: Allergies Allergy/AdvReac Type Severity Reaction Status Date / Time No Known Drug Allergies Allergy Verified 11/13/17 01:57 Medications: Current Medications Acetaminophen (Tylenol) 650 mg PO Q4H PRN PRN Reason: Headache/Fever or Pain Hydrocodone Bitart/Acetaminophen ([place] 5/325) 1 tab PO Q4H PRN PRN Reason: Moderate Pain (4-6) Last Admin: 11/14/17 16:43 Dose: 1 tab Hydrocodone Bitart/Acetaminophen ([place] 5/325) 1 tab PO [facility] Stop: 11/15/17 11:46 Last Admin: 11/14/17 14:45 Dose: 1 tab Benzonatate (Tessalon) 200 mg PO Q6H PRN PRN Reason: Cough Bisacodyl (Dulcolax) 10 mg PO DAILYPRN PRN PRN Reason: Constipation Famotidine (Pepcid) 20 mg PO BID [facility] Last Admin: 11/14/17 21:23 Dose: 20 mg Hydralazine HCl (Apresoline) 10 mg SLOW IVP Q4H PRN PRN Reason: Systolic BP > 180 Ondansetron HCl (Zofran) 4 mg IVP Q6H PRN PRN Reason: Nausea/Vomiting Prednisone (Prednisone) 20 mg PO QAM[facility] Last Admin: 11/14/17 08:08 Dose: 20 mg Zolpidem Tartrate (Ambien) 5 mg PO HSPRN PRN PRN Reason: Insomnia
[2017-11-15] MEDS: HYDROcodone/Acetaminophen 5/325 mg Tablet PO PRN ×5 (04:43→20:48)
[2017-11-15 06:16] LABS: Anion Gap 13 mmol/L (10-20); BUN (Urea Nitrogen) 14 mg/dL (8.4-25.7); Calc. Creatinine Clearance 172 mL/min (70-130); Calcium 8.8 mg/dL (7.8-10.44); Carbon Dioxide 25 mmol/L (22-29); Chloride 97 mmol/L (98-107); Estimated GFR-MDRD Greater than 90; Glucose 115 mg/dL (70-105); Magnesium 2.2 mg/dL (1.6-2.6); Potassium 4.5 mmol/L (3.5-5.1); Sodium 130 mmol/L (136-145)
[2017-11-15] MEDS: predniSONE 20 MG TAB PO SCH (08:37)
[2017-11-15] MEDS: Famotidine 20 MG TAB PO SCH ×2 (08:38→20:48)
--- NOTE | 2017-11-15 11:06 | PDOC.PN ---
- Subjective Encounter Start Date: 11/15/17 Encounter Start Time: 09:30 Subjective: c/o pleuritic chest pain, sob+ -: no c/o palpitation - Objective MAR Reviewed: Yes Vital Signs & Weight: Vital Signs (12 hours) Temp Pulse Resp BP Pulse Ox 11/15/17 08:00 97.8 F 82 14 117/71 95 11/15/17 03:24 98.2 F 89 18 124/77 94 L Weight Weight 248 lb 4.8 oz I&O: 11/14/17 11/15/17 11/16/17 06:59 06:59 06:59 Intake Total 1100 1580 Output Total 1550 2049 Balance -450 -470 Result Diagrams: 11/14/17 04:14 11/15/17 05:01 Phys Exam - Physical Examination HEENT: PERRLA, moist MMs Neck: no JVD, supple Respiratory: no wheezing, no rales rhonchi+ Cardiovascular: RRR, no significant murmur Gastrointestinal: soft, non-tender, positive bowel sounds Musculoskeletal: no edema, pulses present Neurological: non-focal, moves all 4 limbs Psychiatric: A&O x 3 Dx/Plan (1) Chest pain Code(s): R07.9 - CHEST PAIN, UNSPECIFIED Status: Acute Qualifiers: Chest pain type: chest pain on breathing Qualified Code(s): R07.1 - Chest pain on breathing; R07.81 - Pleurodynia (2) NSVT (nonsustained ventricular tachycardia) Code(s): I47.2 - VENTRICULAR TACHYCARDIA Status: Acute (3) Obesity (BMI 30.0-34.9) Code(s): E66.9 - OBESITY, UNSPECIFIED Status: Chronic (4) Hyponatremia Code(s): E87.1 - HYPO-OSMOLALITY AND HYPONATREMIA Status: Acute - Plan add duonebs and small dose of lopressor -: watch for arrhythmias -: add colchicine to see if it helps his chest dyscomfort -: is off antibiotics, wbc down to 15 from 26k -: on prednisone 20mg daily * . Review of Systems - Medications/Allergies Allergies/Adverse Reactions: Allergies Allergy/AdvReac Type Severity Reaction Status Date / Time No Known Drug Allergies Allergy Verified 11/13/17 01:57 Medications: Current Medications Acetaminophen (Tylenol) 650 mg PO Q4H PRN PRN Reason: Headache/Fever or Pain Hydrocodone Bitart/Acetaminophen ([place] 5/325) 1 tab PO Q4H PRN PRN Reason: Moderate Pain (4-6) Last Admin: 11/15/17 08:38 Dose: 1 tab Hydrocodone Bitart/Acetaminophen ([place] 5/325) 1 tab PO [facility] Stop: 11/15/17 11:46 Last Admin: 11/14/17 14:45 Dose: 1 tab Albuterol/Ipratropium (Duoneb) 3 ml NEB [id number] [facility] Benzonatate (Tessalon) 200 mg PO Q6H PRN PRN Reason: Cough Bisacodyl (Dulcolax) 10 mg PO DAILYPRN PRN PRN Reason: Constipation Colchicine (Colcrys) 0.6 mg PO BID [facility] Famotidine (Pepcid) 20 mg PO BID [facility] Last Admin: 11/15/17 08:38 Dose: 20 mg Hydralazine HCl (Apresoline) 10 mg SLOW IVP Q4H PRN PRN Reason: Systolic BP > 180 Metoprolol Tartrate (Lopressor) 25 mg PO BID [facility] Ondansetron HCl (Zofran) 4 mg IVP Q6H PRN PRN Reason: Nausea/Vomiting Prednisone (Prednisone) 20 mg PO QAM-WM [facility] Last Admin: 11/15/17 08:37 Dose: 20 mg Zolpidem Tartrate (Ambien) 5 mg PO HSPRN PRN PRN Reason: Insomnia
--- NOTE | 2017-11-15 19:38 | PDOC.CTH ---
Cardiology Progress Note - Subjective No new issues or concerns. - Objective Vital Signs Temp Pulse Resp BP Pulse Ox 11/15/17 19:08 100 20 11/15/17 15:36 98.2 F 93 14 121/61 92 L 11/15/17 13:03 86 24 H 95 11/15/17 11:08 98.6 F 99 14 120/65 92 L 11/15/17 08:00 97.8 F 82 14 117/71 95 Weight 248 lb 4.8 oz 11/14/17 11/15/17 11/16/17 06:59 06:59 06:59 Intake Total 1100 1580 1860 Output Total 1550 2050 1480 Balance -450 -470 380 - Physical Examination General/Neuro: alert & oriented x3, NAD Neck: no JVD present Lungs: unlabored respirations Heart: RRR Abdomen: NT/ND Extremities: + edema B (none) - Telemetry Telemetry Rhythm: NSR - Labs Result Diagrams: 11/14/17 04:14 11/15/17 05:01 Troponin/CKMB CK-MB (CK-2) 1.9 ng/mL (0-6.6) 11/12/17 22:02 Troponin I 0.025 ng/mL (< 0.028) 11/12/17 22:02 - Assessment/Plan 1. NS VT 2. Normal LV function. 3. Pleuritic type chets pain 4. Hyponatremia PLAN: - Continue conservative management from cardiac standpoint. - No more episodes of NS VT now on BB.
[2017-11-15] MEDS: Colchicine 0.6 MG TAB PO SCH (20:48)
[2017-11-15] MEDS: Metoprolol Tartrate 25 MG TAB PO SCH (20:48)
[2017-11-16] MEDS: HYDROcodone/Acetaminophen 5/325 mg Tablet PO PRN (04:01)
[2017-11-16] MEDS: Colchicine 0.6 MG TAB PO SCH (09:05)
[2017-11-16] MEDS: predniSONE 20 MG TAB PO SCH (09:05)
[2017-11-16] MEDS: Famotidine 20 MG TAB PO SCH (09:06)
[2017-11-16] MEDS: Metoprolol Tartrate 25 MG TAB PO SCH (09:06)
[2017-11-16 10:44] LABS: #Basophils 0.1 thou/uL (0.0-0.2); #Eosinphils 0.4 thou/uL (0.0-0.7); #Monocytes 1.4 thou/uL (0.11-0.59); #Neutrophils 9.6 thou/uL (1.40-6.50); %Basophils 0.6 % (0.0-1.0); %Eosinophils 3.2 % (0.0-10.0); %Lymphocytes 14.8 % (21.0-51.0); %Monocytes 10.4 % (0.0-10.0); Hemoglobin 12.3 g/dL (14.0-18.0); Mean Corpuscular HGB CONC 33.5 g/dL (32.0-36.0); Mean Corpuscular Hemoglobin 31.7 pg (27.0-31.0); Mean Corpuscular Volume 94.6 fl (80.0-94.0); Mean Platelet Volume 6.2 fL (7.4-10.4); Platelet Count 467 thou/uL (130-400); RBC Distribution Width 12.7 % (11.5-14.5); Red Blood Cell (RBC) Count 3.88 mill/uL (4.70-6.10); White Blood Cell (WBC) Count 13.5 thou/uL (4.8-10.8)
[2017-11-16 11:03] LABS: Anion Gap 13 mmol/L (10-20); BUN (Urea Nitrogen) 15 mg/dL (8.4-25.7); Calc. Creatinine Clearance 143 mL/min (70-130); Calcium 8.6 mg/dL (7.8-10.44); Carbon Dioxide 25 mmol/L (22-29); Chloride 97 mmol/L (98-107); Estimated GFR-MDRD 83; Glucose 195 mg/dL (70-105); Potassium 4.2 mmol/L (3.5-5.1); Sodium 131 mmol/L (136-145)
[2017-11-16 11:26] VITALS: BP 141/64; TEMP 98.1
--- NOTE | 2017-11-16 12:13 | PDOC.PN ---
- Subjective Encounter Start Date: 11/16/17 Encounter Start Time: 10:10 Subjective: feels better, pleuritic pain is better -: amb in room, wants to go home - Objective MAR Reviewed: Yes Vital Signs & Weight: Vital Signs (12 hours) Temp Pulse Resp BP BP Pulse Ox 11/16/17 08:05 62 20 95 11/16/17 08:00 98.1 F 113 H 18 141/64 H 94 L 11/16/17 03:41 97.7 F 86 18 106/58 L 92 L 11/16/17 00:35 74 16 Weight Weight 248 lb 4.8 oz I&O: 11/15/17 11/16/17 11/17/17 06:59 06:59 06:59 Intake Total 1580 1860 Output Total 2050 1480 Balance -470 380 Result Diagrams: 11/16/17 10:24 11/16/17 10:24 Phys Exam - Physical Examination HEENT: PERRLA, moist MMs Neck: no JVD, supple Respiratory: no wheezing, no rales Cardiovascular: RRR, no significant murmur Gastrointestinal: soft, non-tender, positive bowel sounds Musculoskeletal: no edema, pulses present Neurological: non-focal, moves all 4 limbs Psychiatric: normal affect, A&O x 3 Dx/Plan (1) Chest pain Code(s): R07.9 - CHEST PAIN, UNSPECIFIED Status: Acute Qualifiers: Chest pain type: chest pain on breathing Qualified Code(s): R07.1 - Chest pain on breathing; R07.81 - Pleurodynia (2) NSVT (nonsustained ventricular tachycardia) Code(s): I47.2 - VENTRICULAR TACHYCARDIA Status: Resolved (3) Obesity (BMI 30.0-34.9) Code(s): E66.9 - OBESITY, UNSPECIFIED Status: Chronic (4) Hyponatremia Code(s): E87.1 - HYPO-OSMOLALITY AND HYPONATREMIA Status: Acute - Plan hemostable -: no further arrhythmias on telemetry -: dc pt home -: to continue lopressor, colchine and prednisone taper * .
--- NOTE | 2017-11-16 20:51 | DIS ---
DATE OF ADMISSION: 11/13/2017 DATE OF DISCHARGE: 11/16/2017 DISCHARGE DISPOSITION: To home. PRIMARY DISCHARGE DIAGNOSES: Pleuritic chest pain, nonsustained V-tach, resolved. SECONDARY DISCHARGE DIAGNOSES: Obesity, hyponatremia. PROCEDURES DONE DURING HOSPITALIZATION: CT angio chest done on the day of admission showed no eviden ce of PE, though bilateral pleural fluid and probable pulmonary edema. He has had MUGA scan done, wh ich showed ejection fraction of 58%. Blood cultures x2 no growth. Had a white count of 26 with disc harge numbers of 13. Discharge BUN and creatinine is 15 and 0.9. Discharge sodium levels are 131. CRP was 10. Initial sodium levels were 128, albumin is 3.2. Troponin x1 is negative. DISCHARGE MEDICATIONS: Aspirin 81 mg p.o. daily, Lipitor 40 mg p.o. at bedtime, colchicine 0.6 mg p. o. twice daily for 1 week, Lopressor 25 mg p.o. twice daily, prednisone tapering dose starting at 20 mg over the course of 9 days. ALLERGIES: No known drug allergies. INPATIENT CONSULTS: Dr. Stacy for Cardiology, Dr. Conde for Pulmonology, Dr. Lu for Infectious Di sease. BRIEF COURSE DURING HOSPITALIZATION: Patient initially came to ER after being discharged on the for complaints of left-sided chest pain. This was worse with deep breathing and was pleuritic in na ture. He has had a CT angio chest done, which did not reveal any PE. He had some bilateral pleural effusions. His discharge white count was 9 and on admission during this cycle his white count was 26 , likely due to prednisone that he was taking. Blood cultures x2 has not grown any organism. He has had Strep pyogenes bacteremia during his last hospitalization on the . He was evaluated by Dr. Mitesh wyman for Pulmonology, Dr. Lu for Infectious Disease, and Dr. Stacy for Cardiology. Patient has re mained hemodynamically stable during his stay. His prednisone has been tapered. His white count is also reducing with the prednisone taper. He has not had any fever during his stay here. He has zeyad ined hemodynamically stable and was closely monitored on telemetry. Also, initially there was suspic ion about nonsustained V-tach and was placed on Lopressor 25 mg twice daily. For an accurate ejectio n fraction, a MUGA scan was done which showed EF of 58%. He is cleared by Dr. Conde, Dr. Lu, and Giovani sen for discharge today. Prior to discharge, he is ambulating and eating well. He was placed on c olchicine, Lopressor during this stay and needs to continue the same along with Ultram p.r.n. for mary n as prescribed. Please see a [id number] documentation on [facility] for the day of discharge.
== END 2017-11-16 14:20 | disposition home or self-care (01) | DRG 204 ==
LOC: ERS 21:38 → 2NO 11-13 00:56
PROVIDERS: ADMIT Internal Medicine; ATTEND Internal Medicine
DX: R07.81 Pleurodynia (principal); I47.2 Ventricular tachycardia; E87.1 Hypo-osmolality and hyponatremia; E66.9 Obesity, unspecified; Z87.891 Personal history of nicotine dependence; E78.00 Pure hypercholesterolemia, unspecified; Z68.35 Body mass index [BMI] 35.0-35.9, adult; Z87.01 Personal history of pneumonia (recurrent); Z86.19 Personal history of other infectious and parasitic diseases
CPT/HCPCS: 36415; 71045; 71275; 78472; 80048; 80053; 81003; 81015; 82550; 82553; 83605; 83735; 83880; 84100; 84484; 85025; 85379; 86140; 87040; 93005; 94640; 96361; 96365; 96375; A9604; G8978-GP-CH; G8979-GP-CH; G8980-GP-CH; J1644; J1885; J1956; J2270; J2543; J3370; J3475; J7050; J7506; J7620